=== PATIENT | male | born 1945 | race Caucasian/White ===

== ENCOUNTER 2024-02-11 10:55 | Outpatient (OUT) | payer MEDICARE, SELFPAY ==
[2024-02-11 12:36] LABS: Prostate Specific Antigen Dx 0.55 ng/mL (<=4.00)
== END 2024-02-11 10:56 | disposition home or self-care (01) ==
LOC: LAB 11:03
PROVIDERS: PCP Nurse Practitioner; Visit Provider Urology
DX: N40.1 Benign prostatic hyperplasia with lower urinary tract symptoms (principal)
CPT/HCPCS: 36415; 84153

== ENCOUNTER 2024-07-19 11:43 | Emergency (ER) | payer MEDICARE, SELFPAY ==
--- OUTSIDE RECORDS SUMMARY | 2024-07-19 11:49 | XMS_ITS | CCD ---
Author Organization [facility] Care Team Providers Care Fringe Weaver Name Role Phone JUN RODRIGUEZ Consulting Unavailable JUN RODRIGUEZ Admitting Unavailable JUN RODRIGUEZ Attending Unavailable KIKO ALEXANDER Primary Care Unavailable ADELE SANFORD Consulting Unavailable ROM RAY Consulting Unavailable KIKO ALEXANDER Primary Care Physician BISI, DR FELICITY Ortiz Attending Unavailable BISI, DR FELICITY Ortiz Consulting Unavailable BISI, DR FELICITY Ortiz Admitting Unavailable KIKO ALEXANDER Primary Care Unavailable Benjamin FARM OPERATIONS MANAGER-Kiko REYES Primary Care [facility] KIKO ALEXANDER Primary Care Unavailable Balwinder GARNER Attending Unavailable TRE ALEXANDERE Primary Care Unavailable Balwinder GARNER Attending Unavailable KIKO ALEXANDER Attending Unavailable KIKO ALEXANDER Referring Unavailable TER ALEXANDERE Ruid Primary Care Unavailable KIKO ALEXANDER Attending Unavailable KIKO ALEXANDER Referring Unavailable KIKO ALEXANDER Primary Care Unavailable KIKO ALEXANDER Attending Unavailable KIKO ALEXANDER Referring Unavailable TWYLA ALEXANDERERIE Rudi Primary Care Unavailable TWYLA ALEXANDERERIE Rudi Referring Unavailable TWYLA ALEXANDERERIE Rudi Primary Care Unavailable Allergies Allergy Classification Reported Allergen(s) Allergy Type Date of Onset Reaction(s) Facility (4 sources) Bee/Wasp/Ant venom; Translations: [Bee Stings] Allergy to substance Unknown Reaction [facility] (8 sources) Promethazine; Translations: [promethazine] Drug Allergy 7 Unknown Reaction [facility] (1 source) Levamisole Drug Allergy [facility] Repository Medications Current Medications Medication Drug Class(es) Dates Sig (Normalized) Sig (Original) acetaminophen 500 mg oral tablet (5 sources) Start: 01-03-2021 take 1 tablet by mouth every six hours acetaminophen 500 mg Tab 500 mg = 1 tab(s), Oral, q6hr, Refills(s) 0 Start Date: 01/03/21 Status: Ordered atorvastatin 10 mg oral tablet (6 sources) HMG-CoA Reductase Inhibitor Start: 11-07-2022 End: 10-07-2023 take 1 tablet by mouth in the morning atorvastatin (LIPITOR) 10 mg tablet Indications: 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) TAKE 1 TABLET BY MOUTH IN THE MORNING 90 tablet 2 10/07/2023 Active Start: 01-03-2021 take 1 tablet by anum th once daily atorvastatin 20 mg Tab 20 mg = 1 tab(s), Oral, Daily, Refills(s) 0 Start Date: 01/03/21 Status: Ordered Blood Glucose meter (1 source) Start: 02-11-2024 Blood Glucose meter Blood Glucose meter, Monitor blood glucose 4x a day Start Date: 02/11/24 Status: Ordered blood-glucose meter misc (2 sources) Start: 07-26-2021 blood-glucose meter misc Indications: New onset type 2 diabetes mellitus (CMS-HCC) , 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) , Type 2 diabetes mellitus treated with insulin (CMS-HCC) Monitor blood sugars 4 times daily, before meals and at bedtime 1 each 0 07/26/2021 Active Osteo Bi-Flex (3 sources) Start: 07-28-2019 Osteo Bi-Flex 1, Oral, Daily Start Date: 07/28/19 Status: Ordered Start: 07-28-2019 Osteo Bi-Flex Start Date: 07/28/19 Status: Ordered Cranberry preparation (2 sources) Non-Standardized Food Allergenic Extract, Non-Standardized Plant Allergenic Extract Start: 01-26-2022 cranberry Refill(s) 0 Start Date: 01/26/22 Status: Ordered cyclobenzaprine hydrochloride 10 mg oral tablet (3 sources) Muscle Relaxant Start: 02-11-2024 take 1 tablet by mouth twice daily as needed for muscle spasms cyclobenzaprine 10 mg Tab 10 mg = 1 tab(s), Oral, BID, PRN for spasm, # 30 tab(s), Refills(s) 0 Start Date: 02/11/24 Status: Ordered Start: 02-12-2023 take 1 tablet by anum th twice daily as needed for muscle spasms cyclobenzaprine (FLEXERIL) 10 mg tablet Indications: Chronic left-sided low back pain with left-sided sciatica Take 1 tablet (10 mg total) by mouth 2 (two) times a day as needed for muscle spasms. 60 tablet 1 02/12/2023 Active ferrous fumarate 325 mg oral tablet (3 sources) Start: 01-03-2021 take 1 tablet by mouth once daily ferrous fumarate 325 mg oral tablet 325 mg = 1 tab(s), Oral, Daily, Refills(s) 0 Start Date: 01/03/21 Status: Ordered FLUoxetine 40 mg oral capsule (6 sources) Serotonin Reuptake Inhibitor Start: 07-28-2019 End: 11-08-2023 take 1 capsule by mouth in the morning FLUoxetine (PROzac) 40 mg capsule Indications: Depression, major, in remission (CMS-HCC) Take 1 capsule by mouth in the morning 90 capsule 1 11/08/2023 Active folic acid 1 mg oral tablet (3 sources) Start: 02-11-2024 take 1 tablet by mouth once daily folic acid 1 mg Tab 1 mg = 1 tab(s), Oral, Daily, Refills(s) 0 Start Date: 02/11/24 Status: Ordered take 1 tablet [facility] folic acid (FOLVITE) 1 mg tablet Take 1 tablet (1 mg total) by mouth in the morning. 0 Active Garlic preparation (5 sources) Non-Standardized Food Allergenic Extract Start: 02-11-2024 take 1 tablet by mouth once daily garlic 1 tab, Oral, Daily, Refill(s) 0 Start Date: 02/11/24 Status: Ordered Start: 07-28-2019 garlic Start D ate: 07/28/19 Status: Ordered garlic 100 mg ta blet Take by mouth. 0 Active glucosamine/chondr lane A sod (OSTEO BI-FLEX ORAL) (2 sources) glucosamine/sophia dr lane A sod (OSTEO BI-FLEX ORAL) Take by mouth. 0 Active Lantus (2 sources) Insulin Analog Start: 2021 Lantus SubCutaneous, Daily, Refills(s) 0 Start Date: 01/26/22 Status: Ordered iron 65 mg 2 daily (2 sources) Start: 2018 iron 65 mg 2 daily iron 65 mg 2 daily Start Date: 07/28/19 Status: Ordered lisinopril 5 mg oral tablet (6 sources) Angiotensin Converting Enzyme Inhibitor Start: 2022 End: 2023 take 1 tablet by mouth in the morning lisinopriL (PRINIVIL,ZESTRIL) 5 mg tablet Indications: DM type 2 with diabetic mixed hyperlipidemia ([facility]-HCC) Take 1 tablet (5 mg total) by mouth in the morning. 90 tablet 1 11/08/2023 Active Start: 01-26-2022 take 1 tablet by anum th once daily lisinopril 2.5 mg Tab 2.5 mg = 1 tab(s), Oral, Daily, Refills(s) 0 Start Date: 01/26/22 Status: Ordered loratadine 10 mg oral tablet (3 sources) Start: 01-03-2021 take 1 tablet by mouth once daily loratadine 10 mg Tab 10 mg = 1 tab(s), Oral, Daily, Refills(s) 0 Start Date: 01/03/21 Status: Ordered 24 hr metoprolol succinate 25 mg extended release oral tablet (6 sources) beta-Adrenergic Rachele Start: 02-11-2024 take 1 tablet by mouth once daily Toprol XL 25 mg Tab-ER 25 mg = 1 tab(s), Oral, Daily, Refills(s) 0 Start Date: 02/11/24 Status: Ordered Start: 05-30-2023 End: 11-08-2023 take 1 tablet by mouth every twenty-four hours in the morning metoprolol succinate XL (TOPROL XL) 25 mg 24 hr tablet Indications: 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 90 tablet 1 11/08/2023 Active Start: 01-03-2021 take 1 mg by mouth once daily Metoprolol succinate 50 mg ER Tablet mg, Oral, Daily, Refills(s) 0 Start Date: 01/03/21 Status: Ordered Start: 01-03-2021 take 1 mg by mouth once daily Metoprolol succinate 50 mg ER Tablet mg, Oral, Daily, Refills(s) 0 Start Date: 01/03/21 Status: Ordered Multi Vitamin+ (1 source) Start: 02-11-2024 take 1 tablet by mouth once daily Multi Vitamin+ 1tab, Oral, Daily, Refill(s) 0 Start Date: 02/11/24 Status: Ordered multivitamin capsule (2 sources) take 1 capsule by mouth in the morning multivitamin capsule Take 1 capsule by mouth in the morning. 0 Active silodosin 8 mg oral capsule (5 sources) alpha-Adrenergi c Rachele Start: 02-12-2017 take 1 capsule by mouth once daily Rapaflo 8 mg oral capsule 8 mg = 1 cap(s), Oral, Daily, # 90 cap(s), Refills(s) 3, Pharmacy: [id number], 184, cm, 02/05/23 9:56:00 EDT, Height/Length Dosing, 95.2, kg, 02/05/23 9:56:00 EDT, Weight Dosing Start Date: 10/30/23 Status: Ordered Vitamin D3 (2 sources) Start: 07-28-2019 Vitamin D3 Sta rt Date: 07/28/19 Status: Ordered Problems Active Problems Problem Classification Problem Date Documented Date Episodic/Chronic Cancer of kidney and renal pelvis (6 sources) History of malignant neoplasm of kidney; Translations: [Personal history of other malignant neoplasm of kidney] Onset: 01-26-2022 Episodic Chronic kidney disease (1 source) Chronic kidney disease; Translations: [Chronic kidney disease, stage 3 unspecified] Onset: 11-24-2020 Conditions associated with dizziness or vertigo (1 source) Dizziness Onset: 03-25-2024 Episodic Deficiency and other anemia (2 sources) Anemia of chronic disease; Translations: [Anemia in other chronic diseases classified elsewhere] Onset: 11-26-2017 06-04-2019 Chronic Deficiency and other anemia (2 sources) Anemia co-occurrent and due to chronic kidney disease stage 3; Translations: [Anemia due to stage 3 chronic kidney disease (CMS-HCC)] Onset: 05-24-2020 05-24-2020 Chronic Diabetes mellitus with complications (6 sources) Mixed hyperlipidemia due to type 2 diabetes mellitus; Translations: [Type 2 diabetes mellitus with other specified complication] Onset: 12-14-2021 10-07-2023 Chronic Diabetes mellitus without complication (4 sources) Diabetes mellitus Onset: 04-09-2024 01-26-2022 Chronic Disorders of lipid metabolism (4 sources) Mixed hyperlipidemia; Translations: [Mixed hyperlipidemia] Onset: 02-11-2019 02-11-2019 Chronic Essential hypertension (1 source) Hypertensive disorder Onset: 04-09-2024 Chronic Genitourinary symptoms and ill-defined conditions (3 sources) Post-micturition incontinence 07-28-2019 Chronic Genitourinary symptoms and ill-defined conditions (9 sources) Nocturia; Translations: [Poor stream of urine] 07-28-2019 Episodic Hyperplasia of prostate (12 sources) Benign prostatic hypertrophy with outflow obstruction; Translations: [Benign prostatic hyperplasia with lower urinary tract symptoms] Onset: 01-26-2022 Chronic Hypertension with complications and secondary hypertension (6 sources) Hypertensive heart AND chronic kidney disease stage 3; Translations: [Hypertensive heart and chronic kidney disease without heart failure, with stage 1 through stage 4 chronic kidney disease, or unspecified chronic kidney disease] Onset: 11-28-2017 11-24-2020 Chronic Immunizations and screening for infectious disease (4 sources) Requires diphtheria, tetanus and pertussis vaccination; Translations: [Encounter for immunization] Onset: 07-10-2018 Resolved: 11-24-2020 11-24-2020 Episodic Mood disorders (9 sources) Depressive disorder; Translations: [Depression] Onset: 11-07-2022 05-18-2019 Chronic Nutritional deficiencies (2 sources) Vitamin D deficiency; Translations: [Vitamin D deficiency, unspecified] 12-11-2022 Chronic Osteoarthritis (2 sources) Osteoarthritis; Translations: [Unspecified osteoarthritis, unspecified site] 03-19-2017 Chronic Other connective tissue disease (2 sources) Triggering of digit; Translations: [Trigger finger, unspecified finger] 12-11-2022 Episodic Other diseases of kidney and ureters (1 source) Urinary tract obstruction; Translations: [Other obstructive and reflux uropathy] Onset: 02-05-2023 Episodic Other inflammatory condition of skin (2 sources) Seborrheic dermatitis; Translations: [Seborrheic dermatitis, unspecified] 12-11-2022 Episodic Other upper respiratory disease (2 sources) Seasonal allergic rhinitis; Translations: [Other seasonal allergic rhinitis] 11-28-2017 Chronic Otitis media and related conditions (1 source) Otitis media in diseases classified elsewhere, right ear; Translations: [Otitis media in diseases classified elsewhere, right ear] Onset: 03-25-2024 Episodic Residual codes; unclassified (2 sources) Sleep apnea; Translations: [Sleep apnea, unspecified] 03-19-2017 Chronic Residual codes; unclassified (3 sources) Family history of cancer; Translations: [Family history of malignant neoplasm of prostate] Onset: 01-26-2022 Episodic Residual codes; unclassified (3 sources) Family history of prostate cancer 05-18-2019 Episodic Screening and history of mental health and substance abuse codes (3 sources) Ex-smoker 05-18-2019 Episodic Unclassified (1 source) Annual Exam Onset: 11-08-2023 Past or Other Problems Problem Classification Problem Date Documented Da te Episodic/Chronic Malignant neoplasm without specification of site (2 sources) Malignant neoplastic disease; Translations: [Malignant (primary) neoplasm, unspecified] Resolved: 05-24-2021 12-11-2022 Chronic Mood disorders (2 sources) Mood disorders Onset: 05-30-2023 Resolved: 11-08-2023 05-30-2023 Nonspecific chest pain (2 sources) Left sided chest pain; Translations: [Other chest pain] Onset: 04-13-2020 04-13-2020 Episodic Open wounds of extremities (2 sources) Open wound of right lower leg; Translations: [Unspecified open wound, right lower leg, initial encounter] Onset: 06-22-2019 Resolved: 11-24-2020 11-24-2020 Episodic Other aftercare (2 sources) Removal of sutures done; Translations: [Encounter for removal of sutures] Onset: 06-22-2019 Resolved: 11-24-2020 11-24-2020 Episodic Other fractures (2 sources) Fracture of sixth thoracic vertebra; Translations: [Unspecified fracture of T5-T6 vertebra, initial encounter for closed fracture] Onset: 05-24-2021 05-24-2021 Episodic Other fractures (2 sources) Closed fracture of clavicle; Translations: [Fracture of unspecified part of right clavicle, subsequent encounter for fracture with routine healing] Onset: 05-24-2021 05-24-2021 Episodic Other fractures (2 sources) Closed fracture of multiple right ribs; Translations: [Multiple fractures of ribs, right side, initial encounter for closed fracture] Onset: 05-24-2021 05-24-2021 Episodic Spondylosis; intervertebral disc disorders; other back problems (2 sources) Chronic low back pain; Translations: [Lumbago with sciatica, left side] Onset: 11-26-2017 11-17-2019 Episodic Unclassified (2 sources) Onset: 05-31-2023 Resolved: 11-08-2023 05-31-2023 Results Test Name Value Interpretation Reference Range Facility CBC AND AUTO DIFFon 04-09-20 24 ABSOLUTE BASOPHIL 0.0 X10E9/L Normal 0.0-0.2 [facility] Comment on above: Performed By: #### C BCA, CMP, 17929-3, 3016-3, 51700-9, HA1C #### [facility] ([id number]) [address], [address] [place] [address] ABSOLUTE NEUTROPHIL 4.4 X10E9/L Normal 1.5-6.6 [facility] Comment on above: Performed By: #### C BCA, CMP, 17562-0, 3016-3, 68205-0, HA1C #### [facility] ([id number]) [address], [address] [place] [address] Basophils/100 WBC (Bld) 0.4 % Normal [facility] Comment on above: Performed By: #### C BCA, CMP, 70891-6, 3016-3, 54420-3, HA1C #### [facility] ([id number]) [address], [address] [place] [address] Eosinophils (Bld) [#/Vol] 0.2 10*3/uL Normal 0.0-0.4 [facility] Comment on above: Performed By: #### C BCA, CMP, 59436-6, 3016-3, 89270-5, HA1C #### [facility] ([id number]) [address], [address] [place] [address] Eosinophils/100 WBC (Bld) 2.9 % Normal [facility] Comment on above: Performed By: #### C BCA, CMP, 63909-8, 3016-3, 50635-6, HA1C #### [facility] ([id number]) [address], [address] [place] [address] Erythrocyte distribution width (RBC) [Ratio] 13.9 % Normal 11.5-15.0 [facility] Comment on above: Performed By: #### C BCA, CMP, 41334-9, 3016-3, 51886-9, HA1C #### [facility] ([id number]) [address], [facility] [address] [place] [address] Hematocrit (Bld) [Volume fraction] 40.0 % Normal 39-49 [facility] Comment on above: Performed By: #### C BCA, CMP, 56657-6, 3016-3, 45084-8, HA1C #### [facility] ([id number]) [address], [address] [place] [address] Hemoglobin (Bld) [Mass/Vol] 14.1 g/dL Normal 13.0-17.0 [facility] Comment on above: Performed By: #### C BCA, CMP, 74727-6, 3016-3, 73671-4, HA1C #### [facility] ([id number]) [address], [facility] [address] [place] [address] Lymphocytes (Bld) [#/Vol] 2.0 10*3/uL Normal 1.0-3.5 [facility] Comment on above: Performed By: #### C BCA, CMP, 77192-4, 3016-3, 06130-7, HA1C #### [facility] ([id number]) [address], [address] [place] [address] Lymphocytes/100 WBC (Bld) 27.6 % Normal [facility] Comment on above: Performed By: #### C BCA, CMP, 54863-2, 3016-3, 42766-6, HA1C #### [facility] ([id number]) [address], [address] [place] [address] MCH (RBC) [Entitic mass] 33.0 pg Normal 27-34 [facility] Comment on above: Performed By: #### C BCA, CMP, 27713-4, 3016-3, 45098-4, HA1C #### [facility] ([id number]) [address], [address] [place] [address] MCHC (RBC) [Mass/Vol] 35.2 g/dL Normal 32-36 [facility] Comment on above: Performed By: #### C BCA, CMP, 48075-8, 3016-3, 31871-7, HA1C #### [facility] ([id number]) [address], [facility] [address] [place] [address] MCV (RBC) [Entitic vol] 94 fL Normal 80-100 [facility] Comment on above: Performed By: #### C BCA, CMP, 49955-0, 3016-3, 68301-8, HA1C #### [facility] ([id number]) [address] [address] [place] [address] Monocytes (Bld) [#/Vol] 0.6 10*3/uL Normal 0-0.9 [facility] Comment on above: Performed By: #### C BCA, CMP, 35945-6, 3016-3, 01416-5, HA1C #### [facility] ([id number]) [address] [address] [place] [address] Monocytes/100 WBC (Bld) 7.9 % Normal [facility] Comment on above: Performed By: #### C BCA, CMP, 05014-7, 3016-3, 81033-0, HA1C #### [facility] ([id number]) [address], [address] [place] [address] Neutrophils/100 WBC (Bld) 61.2 % Normal [facility] Comment on above: Performed By: #### C BCA, CMP, 78325-6, 3016-3, 27712-5, HA1C #### [facility] ([id number]) [address], [facility] [address] [place] [address] Platelet mean volume (Bld) [Entitic vol] 7.4 fL Normal 7-12 [facility] Comment on above: Performed By: #### C BCA, CMP, 85209-4, 3016-3, 04242-2, HA1C #### [facility] ([id number]) [address], [facility] [address] [place] [address] Platelets (Bld) [#/Vol] 284 10*3/uL Normal 150-450 [facility] Comment on above: Performed By: #### C BCA, CMP, 38003-3, 3016-3, 07029-0, HA1C #### [facility] ([id number]) [address], [facility] [address] [place] [address] RBC COUNT 4.25 X10E12/L Normal 4.10-5.70 [facility] Comment on above: Performed By: #### C BCA, CMP, 98200-3, 3016-3, 24431-5, HA1C #### [facility] ([id number]) [address], [address] [place] [address] WBC (Bld) [#/Vol] 7.1 10*3/uL Normal 4.0-11.0 [facility] Comment on above: Performed By: #### C BCA, CMP, 77419-1, 3016-3, 16128-0, HA1C #### [facility] ([id number]) [address], [address] [place] [address] COMPREHENSIVE METABOLIC PANE Gamaliel 04-09-2024 Albumin [Mass/Vol] 4.4 g/dL Normal 3.2-5.3 [facility] Comment on above: Performed By: #### C BCA, CMP, 22725-2, 3016-3, 42864-7, HA1C #### [facility] ([id number]) [address], [address] [place] [address] ALP [Catalytic activity/Vol] 82 U/L Normal 39-130 [facility] Comment on above: Performed By: #### C BCA, CMP, 59722-9, 3016-3, 39683-5, HA1C #### [facility] ([id number]) [address], [address] [place] [address] ALT [Catalytic activity/Vol] 27 U/L Normal 0-40 [facility] Comment on above: Performed By: #### C BCA, CMP, 17334-7, 3016-3, 51432-2, HA1C #### [facility] ([id number]) [address], [address] [place] [address] Anion gap [Moles/Vol] 9 mmol/L Normal 5-15 [facility] Comment on above: Performed By: #### C BCA, CMP, 81745-4, 3016-3, 39120-9, HA1C #### [facility] ([id number]) [address], [address] [place] [address] AST [Catalytic activity/Vol] 22 U/L Normal 0-41 [facility] Comment on above: Performed By: #### C BCA, CMP, 50437-6, 3016-3, 16911-7, HA1C #### [facility] ([id number]) [address], [address] [place] [address] Bilirubin [Mass/Vol] 0.6 mg/dL Normal 0.3-1.2 [facility] Comment on above: Performed By: #### C BCA, CMP, 37036-4, 3016-3, 26954-8, HA1C #### [facility] ([id number]) [address], [address] [place] [address] Calcium [Mass/Vol] 9.4 mg/dL Normal 8.5-10.5 [facility] Comment on above: Performed By: #### C BCA, CMP, 36459-5, 3016-3, 76492-4, HA1C #### [facility] ([id number]) [address], [address] [place] [address] Chloride [Moles/Vol] 106 mmol/L Normal 98-109 [facility] Comment on above: Performed By: #### C BCA, CMP, 55464-5, 3016-3, 94180-1, HA1C #### [facility] ([id number]) [address], [address] [place] [address] CO2 [Moles/Vol] 27 mmol/L Normal 22-32 [facility] Comment on above: Performed By: #### C BCA, CMP, 92627-4, 3016-3, 85916-6, HA1C #### [facility] ([id number]) [address] [address] [place] [address] Creatinine [Mass/Vol] 1.41 mg/dL High 0.60-1.30 [facility] Comment on above: Result Comment: METH OD TRACEABLE TO IDMS STANDARD Performed By: #### C BCA, CMP, 36137-9, 3016-3, 17415-0, HA1C #### [facility] ([id number]) [address] [address] [place] [address] GFR/1.73 sq M.predicted among non-blacks MDRD (S/P/Bld) [Vol rate/Area] 51 mL/min/{1.73_m2} Low >59 [facility] Comment on above: Result Comment: Reported eGFR is based on the CKD-EPI 2020 equation that does not use a race coefficient. Performed By: #### C BCA, CMP, 09218-6, 3016-3, 66122-6, HA1C #### [facility] ([id number]) [address], [address] [place] [address] Glucose [Mass/Vol] 100 mg/dL High 65-99 [facility] Comment on above: Performed By: #### C BCA, CMP, 14119-2, 3016-3, 37702-2, HA1C #### [facility] ([id number]) [address], [address] [place] [address] Potassium [Moles/Vol] 4.0 mmol/L Normal 3.5-5.0 [facility] Comment on above: Performed By: #### C BCA, CMP, 27957-6, 3016-3, 02348-6, HA1C #### [facility] ([id number]) [address], [address] [place] [address] Protein [Mass/Vol] 7.3 g/dL Normal 6.0-8.0 [facility] Comment on above: Performed By: #### C BCA, CMP, 27735-8, 3016-3, 39602-4, HA1C #### [facility] ([id number]) [address], [address] [place] [address] Sodium [Moles/Vol] 142 mmol/L Normal 134-146 [facility] Comment on above: Performed By: #### C BCA, CMP, 93386-3, 3016-3, 36788-7, HA1C #### [facility] ([id number]) [address], [address] [place] [address] Urea nitrogen [Mass/Vol] 20 mg/dL Normal 5-27 [facility] Comment on above: Performed By: #### C BCA, CMP, 02459-6, 3016-3, 86027-1, HA1C #### [facility] ([id number]) [address], [address] [address] HCV Ab IA Qlon 04-09-2024 ANTI HCV W/PCR REFLX Non-Reactive Normal NRCT Pr [facility] Comment on above: Result Comment: If recent infection suspected, recommend repeat testing (>2 months). Totjyg-su-hrywhz ratio is <0.80. Performed By: #### C BCA, CMP, 38655-6, 3016-3, 87781-9, HA1C #### [facility] ([id number]) [address] [address] HGB A1C (GLYCO-HGB)on 2023 Glucose [Mass/Vol] 126 mg/dL Normal [facility] Comment on above: Performed By: #### C BCA, CMP, 29965-6, 3016-3, 23085-1, HA1C #### [facility] ([id number]) [address] [address] HbA1c (Bld) [Mass fraction] 6.0 % High 4.4-5.6 [facility] Comment on above: Result Comment: NOTE ADA Guidelines Result HgbA1c Normal : less than 5.7 % Prediabetes : 5.7 % to 6.4 % Diabetes : > 6.4 % Use with caution in patients with abnormal hemoglobin variants as the half-life of red blood cells and in vivo glycation rates are affected. Performed By: #### C BCA, CMP, 41570-5, 3016-3, 33036-8, HA1C #### [facility] ([id number]) [address] [address] Lipid 1996 panelon 4 Cholesterol [Mass/Vol] 124 mg/dL Low 150-200 [facility] Comment on above: Performed By: #### C BCA, CMP, 87368-3, 3016-3, 44198-3, HA1C #### [facility] ([id number]) [address], [address] [place] [address] Cholesterol in HDL [Mass/Vol] 33 mg/dL Low >39 [facility] Comment on above: Result Comment: HDL <40 mg/dL - High Risk HDL > or = 40mg/dL- Desirable HDL >60 mg/dL - Negative Risk Performed By: #### C BCA, CMP, 94570-6, 3016-3, 26921-6, HA1C #### [facility] ([id number]) [address], [address] [place] [address] Cholesterol in LDL [Mass/Vol] 72 mg/dL Normal <130 [facility] Comment on above: Result Comment: LDL <100 mg/dL - Desirable LDL >160 mg/dL - High Risk Performed By: #### C BCA, CMP, 63539-3, 3016-3, 63617-0, HA1C #### [facility] ([id number]) [address], [address] [place] [address] Cholesterol in VLDL [Mass/Vol] 19 mg/dL Normal 0-30 [facility] Comment on above: Performed By: #### C BCA, CMP, 32657-8, 3016-3, 66987-8, HA1C #### [facility] ([id number]) [address], [address] [place] [address] CHOLESTEROL:HDL 3.8 Normal 1.0-5.0 [facility] Comment on above: Performed By: #### C BCA, CMP, 17370-1, 3016-3, 28216-8, HA1C #### [facility] ([id number]) [address], [address] [place] [address] Triglyceride [Mass/Vol] 93 mg/dL Normal 27-150 [facility] Comment on above: Performed By: #### C BCA, CMP, 72780-4, 3016-3, 31138-4, HA1C #### [facility] ([id number]) [address] [facility] [address] [place] [address] MICROALBUMIN - ALBUMIN:CREAT ININE URINE RATIOon 04-09-2024 ALB/CREAT RATIO 55.6 mg/g creat High 0.0-30.0 [facility] Comment on above: Performed By: #### M ALBU #### [facility] ([id number]) [address] [facility] [address] [place] [address] Albumin DL <= 20 mg/L (U) [Mass/Vol] 5.7 mg/dL High 0.0-1.9 [facility] Comment on above: Performed By: #### M ALBU #### [facility] ([id number]) [address] [facility] [address] [place] [address] URINE CREAT 102.49 mg/dL Normal [facility] Comment on above: Performed By: #### M ALBU #### [facility] ([id number]) [address] [facility] [address] [place] [address] TSH Qnon 04-09-2024 TSH 3.20 uIU/mL Normal 0.49-4.67 [facility] Comment on above: Performed By: #### C BCA, CMP, 10938-0, 3016-3, 39756-5, HA1C #### [facility] ([id number]) [address] [facility] [place] [address] Screenson 02-14-2024 Screens [id number] [id number] Normal [facility] Ambulatory Visit Summaryon 0 02-11-2024 Ambulatory Visit Summary LEONARDO CARMONA :1945 Visit Date:02/11/2024 Ambulatory Visit Instructions Your Diagnosis BPH with urinary obstruction Family hx of prostate cancer Hx of renal cell carcinoma Your Care Team Attending Physician - Balwinder GARNER MD Primary Care Physician - KIKO ALEXANDER CNP This Is Your Medications List silodosin (Rapaflo 8 mg oral capsule) Contact prescribing physician if questions or concerns Misc Prescription (Blood Glucose meter) acetaminophen (acetaminophen 500 mg Tab) atorvastatin (atorvastatin 20 mg Tab) chondroitin-glucosamine (Osteo Bi-Flex) cyclobenzaprine (cyclobenzaprine 10 mg Tab) ferrous fumarate (ferrous fumarate 325 mg oral tablet) fluoxetine (FLUoxetine 40 mg Cap) folic acid (folic acid 1 mg Tab) garlic lisinopril (lisinopril 2.5 mg Tab) loratadine (loratadine 10 mg Tab) metoprolol (Toprol XL 25 mg Tab-ER) multivitamin (Multi Vitamin+) Procedures Performed Cystoscopy (07/13/2010), Urodynamics (07/13/2010), Nephrectomy. Discharge Vitals Temperature (Temporal Artery) 37 ?C Heart Rate (Peripheral) 57 Respiratory Rate 16 Blood Pressure 125/72 Height 184 cm Height 72 in Weight 95 kg Weight 209 lb BMI 28.06 What to do next Scheduled Follow-Up Appointments Sunday. 2024 9:45 AM EDT With: Balwinder GARNER MD Where: [facility] Lab Reportson 02-11-2024 Lab Reports [id number] [id number] F [facility] Patient Educationon 02-11-20 24 Patient Education Urology Benign Prostatic Hyperplasia Benign prostatic hyperplasia (BPH) is an enlarged prostate gland that is caused by the normal aging process. The prostate may get bigger as a man gets older. The condition is not caused by cancer. The prostate is a walnut-sized gland that is involved in the production of semen. It is located in front of the rectum and below the bladder. The bladder stores urine. The urethra carries stored urine out of the body. An enlarged prostate can press on the urethra. This can make it harder to pass urine. The buildup of urine in the bladder can cause infection. Back pressure and infection may progress to bladder damage and kidney (renal) failure. What are the causes? This condition is part of the normal aging process. However, not all men develop problems from this condition. If the prostate enlarges away from the urethra, urine flow will not be blocked. If it enlarges toward the urethra and compresses it, there will be problems passing urine. What increases the risk? This condition is more likely to develop in men older than 50 years. What are the signs or symptoms? Symptoms of this condition include: ? Getting up often during the night to urinate. ? Needing to urinate frequently during the day. ? Difficulty starting urine flow. ? Decrease in size and strength of your urine stream. ? Leaking (dribbling) after urinating. ? Inability to pass urine. This needs immediate treatment. ? Inability to completely empty your bladder. ? Pain when you pass urine. This is more common if there is also an infection. ? Urinary tract infection (UTI). How is this diagnosed? This condition is diagnosed based on your medical history, a physical exam, and your symptoms. Tests will also be done, such as: ? A post-void bladder scan. This measures any amount of urine that may remain in your bladder after you finish urinating. ? A digital rectal exam. In a rectal exam, your health care provider checks your prostate by putting a lubricated, gloved finger into your rectum to feel the back of your prostate gland. This exam detects the size of your gland and any abnormal lumps or growths. ? An exam of your urine (urinalysis). ? A prostate specific antigen (PSA) screening. This is a blood test used to screen for prostate cancer. ? An ultrasound. This test uses sound waves to electronically produce a picture of your prostate gland. Your health care provider may refer you to a specialist in kidney and prostate diseases (urologist). How is this treated? Once symptoms begin, your health care provider will monitor your condition (active surveillance or watchful waiting). Treatment for this condition will depend on the severity of your condition. Treatment may include: ? Observation and yearly exams. This may be the only treatment needed if your condition and symptoms are mild. ? Medicines to relieve your symptoms, including: ? Medicines to shrink the prostate. ? Medicines to relax the muscle of the prostate. ? Surgery in severe cases. Surgery may include: ? Prostatectomy. In this procedure, the prostate tissue is removed completely through an open incision or with a laparoscope or robotics. ? Transurethral resection of the prostate (TURP). In this procedure, a tool is inserted through the opening at the tip of the penis (urethra). It is used to cut away tissue of the inner core of the prostate. The pieces are removed through the same opening of the penis. This removes the blockage. ? Transurethral incision (TUIP). In this procedure, small cuts are made in the prostate. This lessens the prostate's pressure on the urethra. ? Transurethral microwave thermotherapy (TUMT). This procedure uses microwaves to create heat. The heat destroys and removes a small amount of prostate tissue. ? Transurethral needle ablation (TUNA). This procedure uses radio frequencies to destroy and remove a small amount of prostate tissue. ? Interstitial laser coagulation (ILC). This procedure uses a laser to destroy and remove a small amount of prostate tissue. ? Transurethral electrovaporization (TUVP). This procedure uses electrodes to destroy and remove a small amount of prostate tissue. ? Prostatic urethral lift. This procedure inserts an implant to push the lobes of the prostate away from the urethra. Follow these instructions at home: ? Take olqo-vbb-wjtoeqy and prescription medicines only as told by your health care provider. ? Monitor your symptoms for any changes. Contact your health care provider with any changes. ? Avoid drinking large amounts of liquid before going to bed or out in public. ? Avoid or reduce how much caffeine or alcohol you drink. ? Give yourself time when you urinate. ? Keep all follow-up visits. This is important. Contact a health care provider if: ? You have unexplained back pain. ? Your symptoms do not get better with treatment. ? You develop side effects from the medicine (more content not included)... Normal [facility] Urology Office/Clinic Noteon 02-11-2024 Urology Office/Clinic Note Chief Complaint Pt is here for 1 yr w/ PSA HPI Staff RWR pt. 1 year follow up w/PSA Previous DX: enlarged prostate w/urinary obstruction, family HX of prostate cancer, HX of renal cell carcinoma, post void dribbling, nocturia, urinary urgency, weak urinary stream. Rapaflo 8mg qd. S/P Rt Nephrectomy 2000. PSA 06/02/19 - 0.490 12/27/20 - 0.40 01/16/22 - 0.45 01/29/23 - 0.57 Dysuria: denies Incomplete bladder emptying: denies Hematuria: denies Frequency: yes Urgency: mild Nocturia: 1x a night Stream: steady weak stream Leaking: mild Post void dripping: mild Wearing pads/ Depends: denies Urge incontinence: 1-2 this year Stress incontinence: denies Incontinence without Sensory Awareness: denies Abdominal pain: denies Flank pain: denies Sexual complaints: _ History of Present Illness Tests reviewed: reviewed UA. I have reviewed the previous health record information and history for this patient from Dr. Castaneda. I have reviewed and verified the staff HPI to be accurate for this encounter. There have been no associated fever, chills, flank pain, or blood in the urine. Denies any urinary infections since last encounter. Review of Systems PHQ Score Initial Depression Screen Score: 0 SCORE ROS - Provider Constitutional: denies weight loss, denies hot flashes. Eyes: denies eye problems. Gastrointestinal: denies nausea, denies vomiting. Cardiovascular: denies chest pain or angina. Integumentary: no dryness Musculoskeletal: denies musculoskeletal symptoms. ENMT: denies otolaryngeal symptoms. Respiratory: no shortness of breath. Heme/Lymph: denies easy bleeding tendency, denies easy bruising tendency. Psychiatric: no confusion, no anxiety. Genitourinary: See HPI. Physical Exam Vitals & Measurements T: 37 ?C(Temporal Artery) HR: 57(Peripheral) RR: 16 BP: 125/72 HT: 72 in HT: 184 cm WT: 95 kg WT: 209 lb BMI: 28.06 General Appearance: alert, no distress, well nourished, well developed male. Assessment/Plan Portions of this record may have been created with voice recognition artificial intelligence software, specifically [employer], [employer] and or [employer]. Substitutions may have occurred due to the inherent limitations of voice recognition and artificial intelligence software. 1. BPH with urinary obstruction (N40.1: Benign prostatic hyperplasia with lower urinary tract symptoms) PSA: 12/27/20 - 0.40 01/16/22 - 0.45 01/29/23 - 0.57 Pt did not have a PSA drawn for today's appointment. Will order PSA to be done now. UA today neg. IPSS 14 (16) Taking Rapaflo 8 mg qd. Pt to call for refills. Nocturia 1x, mild urgency, steady weak stream. Discussed medication management vs surgical management. Pt pleased with current medication management, despite somewhat high IPSS score. -PSA now -Cont Rapaflo 8mg qd -Follow up in 1 year w/ PSA pending current level 2. Family hx of prostate cancer (Z80.42: Family history of malignant neoplasm of prostate) Father and brother. 3. Hx of renal cell carcinoma (Z85.528: Personal history of other malignant neoplasm of kidney) S/p R nephrectomy 2000. No current issues. The patient is here with his today. PSA level was not obtained as they state they did not receive a request. He has had no DONNELL for several years and if the PSA is normal he does not desire 1. He still scoring a 14 despite being on the alpha-rachele but is fairly happy with his urinary flow pattern. Discussed other options including prostate resection versus UroLift versus Rezum procedure. They will call for refills. No need for doses changes at this point. They agree with the plan call for the upcoming PSA level result Follow-up With When Contact Information PATSY TURNER, Balwinder Gastelum, URL [address] [place] [address] [place] [phone]- Additional Instructions: 1 year w/ PSA Patient Education Benign Prostatic Hyperplasia Daina Boone, personally scribed for Dr. Garner on 02/11/2024 10:14:56. . Documentation recorded by the scribDaina telles, accurately reflects the services(s) I performed and decisions made by me. Authenticated by Dr. Garner on 02/11/2024 10:18:48. Problem List/Past Medical History Ongoing BPH with urinary obstruction Depression Diabetes Family hx of prostate cancer Former smoker Hx of renal cell carcinoma Nocturia Post-void dribbling Urinary urgency Weak urine stream Historical No qualifying data Procedure/Surgical History Cystoscopy (07/13/2010), Urodynamics (07/13/2010), Nephrectomy. Medications acetaminophen 500 mg Tab, 500 mg= 1 tab(s), Oral, q6hr atorvastatin 20 mg Tab, 20 mg= 1 tab(s), Oral, Daily Blood Glucose meter, See Instructions cyclobenzaprine 10 mg Tab, 10 mg= 1 tab(s), Oral, BID, PRN ferrous fumarate 325 mg oral tablet, 325 mg= 1 tab(s), Oral, Daily FLUoxetine 40 mg Cap, 40 (more content not included)... Normal [facility] Comment on above: Result Comment: Elec tronically Signed By: Balwinder GARNER MD\.br\Date and Time Signed: 02/11/24 10:20 EDT\.br\Electronically Co-Signed By: Daina Barrett\.br\Date and Time Co-Signed: 02/11/24 10:15 EDT POCT Hemoglobin A1con 2023 HbA1c (Bld) [Mass fraction] 5.9 g/dL 4 - 7 g/dL [facility] Met[facility] Profon 04-16 (cont.) Normal [facility] Comment on above: Result Comment: Aver age GFR for 70 or more years old: 75 mL/min/1.73sq m Chronic Kidney Disease: <60 mL/min/1.73sq m Kidney failure: <15 mL/min/1.73sq m eGFR calculated using average adult body mass. Additional eGFR calculator available at: http://www.[employer]/multiple_crcl_2011.htm Performed By: #### T YS #### [employer] [address] [place], [place] [id number] [employer]: Hira Pastrana MD Anion gap [Moles/Vol] 10 mmol/L Normal 9-17 [facility] Comment on above: Performed By: #### T YS #### [facility] [address] [place], [place] [id number] [employer]: Hira Pastrana MD Calcium [Mass/Vol] 8.5 mg/dL Low 8.6-10.4 [facility] Comment on above: Performed By: #### T YS #### [facility] [place] [address] [employer]: Hira Pastrana MD Chloride [Moles/Vol] 102 mmol/L Normal 98-107 [facility] Comment on above: Performed By: #### T YS #### [facility] [employer] [address] [place] [address] [employer]: Hira Pastrana MD CO2 [Moles/Vol] 21 mmol/L Normal 20-31 [facility] Comment on above: Performed By: #### T YS #### [address] [address] [employer]: Hira Pastrana MD Creatinine [Mass/Vol] 0.96 mg/dL Normal 0.70-1.20 [facility] Comment on above: Performed By: #### T YS #### [address] [address] [employer]: Hira Pastrana MD GFR, Amer >60 Normal >60 [facility] Comment on above: Performed By: #### T YS #### [facility] [address] [place] [address] [employer]: Hira Pastrana MD GFR,non Amer >60 Normal >60 [facility] Comment on above: Performed By: #### T YS #### [facility] [address] [place] [address] [employer]: Hira Pastrana MD Glucose [Mass/Vol] 103 mg/dL High 70-99 [facility] Comment on above: Performed By: #### T YS #### [facility] [address] [place] [address] [employer]: Hira Pastrana MD Potassium [Moles/Vol] 3.8 mmol/L Normal 3.7-5.3 [facility] Comment on above: Performed By: #### T YS #### [place] [address] [place] [address] [employer]: Hira Pastrana MD Sodium [Moles/Vol] 133 mmol/L Low 135-144 [facility] Comment on above: Performed By: #### T YS #### [address] [address] [employer]: Hira Pastrana MD Urea nitrogen [Mass/Vol] 16 mg/dL Normal 8- [facility] Comment on above: Performed By: #### T YS #### [address] [address] [employer]: Hira Pastrana MD BUN/CRE Ratio NOT REPORTED Normal - [facility] Comment on above: Performed By: #### T YS #### [address] [address] [employer]: Hira Pastrana MD Staging: NOT REPORTED Normal [facility] Comment on above: Performed By: #### T YS #### [address] [address] [employer]: Hira Pastrana MD CBCon 04-16-2021 Erythrocyte distribution width (RBC) [Ratio] 12.7 % Normal 11.8-14.4 [facility] Comment on above: Performed By: #### T YS #### [facility] [address] [place] [address] [employer]: Hira Pastrana MD Hematocrit (Bld) [Volume fraction] 38.0 % Low 40.7-50.3 [facility] Comment on above: Performed By: #### T YS #### [address] [address] [employer]: Hira Pastrana MD Hemoglobin (Bld) [Mass/Vol] 12.4 g/dL Low 13.0-17.0 [facility] Comment on above: Performed By: #### T YS #### [address] [address] [employer]: Hira Pastrana MD MCH (RBC) [Entitic mass] 30.2 pg Normal 25.2-33.5 [facility] Comment on above: Performed By: #### T YS #### [address] [address] [employer]: Hira Pastrana MD MCHC (RBC) [Mass/Vol] 32.6 g/dL Normal 28.4-34.8 [facility] Comment on above: Performed By: #### T YS #### [address] [address] [employer]: Hira Psatrana MD MCV (RBC) [Entitic vol] 92.5 fL Normal 82.6-102.9 [facility] Comment on above: Performed By: #### T YS #### [address] [address] [employer]: Hira Pastrana MD NRBC Automated 0.0 per 100 WBC Normal 0.0 [facility] Comment on above: Performed By: #### T YS #### [address] [address] [employer]: Hira Pastrana MD Platelet mean volume (Bld) [Entitic vol] 9.2 fL Normal 8.1-13.5 [facility] Comment on above: Performed By: #### T YS #### [address] [address] [employer]: Hira Pastrana MD Platelets (Bld) [#/Vol] 231 10*3/uL Normal 138-453 [facility] Comment on above: Performed By: #### T YS #### [facility] [address] [place] [address] [employer]: Hira Pastrana MD RBC (Bld) [#/Vol] 4.11 10*6/uL Low 4.21-5.77 [facility] Comment on above: Performed By: #### T YS #### [facility] [address] [place] [address] [employer]: Hira Pastrana MD WBC (Bld) [#/Vol] 9.3 10*3/uL Normal 3.5-11.3 [facility] Comment on above: Performed By: #### T YS #### [facility] [address] [place] [address] [employer]: Hira Pastrana MD XR CHEST PORTABLEon 04-16-20 XR CHEST PORTABLE EXAMINATION: ONE XRAY VIEW OF THE CHEST 04/16/2021 6:20 pm COMPARISON: 04/16/2021 at 0515 hours HISTORY: ORDERING SYSTEM PROVIDED HISTORY: interval exam after CT removal TECHNOLOGIST PROVIDED HISTORY: interval exam after CT removal Reason for Exam: post chest tube removal upright port FINDINGS: Enlarged cardiomediastinal silhouette. Interval removal right-sided chest tube. No new or recurrent pneumothorax identified. Patchy right lung base opacities have evolved since prior exam. Suspected right-sided pleural thickening. Surgical identified left lung/left hemithorax. Chronic interstitial thickening. No pneumothorax IMPRESSION: Interval removal right-sided chest tube. Patchy opacity right lung base likely areas of atelectasis or scarring. No new or recurrent pneumothorax identified. Interpreted by: Gene Blank MD Signed by: Gene Blank MD 04/16/21 Final result Normal [facility] XR CHEST PORTABLE EXAMINATION: ONE XRAY VIEW OF THE CHEST 04/16/2021 6:07 am COMPARISON: 04/15/2021, 04/14/2021 HISTORY: ORDERING SYSTEM PROVIDED HISTORY: R pneumo with chest tube, rib fx TECHNOLOGIST PROVIDED HISTORY: R pneumo with chest tube, rib fx FINDINGS: Right chest tube in place. No pneumothorax identified. The cardiac and mediastinal contours appear unchanged. Streaky opacities in the lung bases are again noted. Right rib fractures again demonstrated. IMPRESSION: Right chest tube in place without pneumothorax identified. Similar appearance of basilar opacities, likely representing atelectasis. Interpreted by: Damien Ngo MD Signed by: Damien Ngo MD 04/16/21 Final result Normal [facility] Basic Metabolic Profon 04-15 (cont.) Normal [facility] Comment on above: Result Comment: Aver age GFR for 70 or more years old: 75 mL/min/1.73sq m Chronic Kidney Disease: <60 mL/min/1.73sq m Kidney failure: <15 mL/min/1.73sq m eGFR calculated using average adult body mass. Additional eGFR calculator available at: http://www.[employer]/multiple_crcl_2011.htm Performed By: #### C OVRB #### [address] [address] [employer]: Hira Pastrana MD Anion gap [Moles/Vol] 13 mmol/L Normal 9-17 [facility] Comment on above: Performed By: #### C OVRB #### [address] [address] [employer]: Hira Pastrana MD Calcium [Mass/Vol] 7.9 mg/dL Low 8.6-10.4 [facility] Comment on above: Performed By: #### C OVRB #### [facility] [address] [place] [address] [employer]: Hira Pastrana MD Chloride [Moles/Vol] 104 mmol/L Normal 98-107 [facility] Comment on above: Performed By: #### C OVRB #### [facility] [address] [place] [address] [employer]: Hira Pastrana MD CO2 [Moles/Vol] 21 mmol/L Normal 20-31 [facility] Comment on above: Performed By: #### C OVRB #### [address] [address] [employer]: Hira Pastrana MD Creatinine [Mass/Vol] 1.16 mg/dL Normal 0.70-1.20 [facility] Comment on above: Performed By: #### C OVRB #### [address] [address] [employer] Furniture: Hira Pastrana MD GFR, Amer >60 Normal >60 [facility] Comment on above: Performed By: #### C OVRB #### [address] [address] [employer]: Hira Pastrana MD GFR,non Amer >60 Normal >60 [facility] Comment on above: Performed By: #### C OVRB #### [address] [address] [employer]: Hira Pastrana MD Glucose [Mass/Vol] 105 mg/dL High 70-99 [facility] Comment on above: Performed By: #### C OVRB #### [address] [address] [employer]: Hira Pastrana MD Potassium [Moles/Vol] 3.8 mmol/L Normal 3.7-5.3 [facility] Comment on above: Performed By: #### C OVRB #### [address] [address] [employer]: Hira Pastrana MD Sodium [Moles/Vol] 138 mmol/L Normal 135-144 [facility] Comment on above: Performed By: #### C OVRB #### [address] [address] [employer]: Hira Pastrana MD Urea nitrogen [Mass/Vol] 16 mg/dL Normal 8-23 [facility] Comment on above: Performed By: #### C OVRB #### [address] [address] [employer]: Hira Pastrana MD BUN/CRE Ratio NOT REPORTED Normal - [facility] Comment on above: Performed By: #### C OVRB #### [address] [address] [employer]: Hira Pastraan MD Staging: NOT REPORTED Normal [facility] Comment on above: Performed By: #### C OVRB #### [address] [address] [employer]: Hira Pastrana MD CBC with Diffon 04-15-2021 Abs. Basophil 0.03 k/uL Normal 0.00-0.20 [facility] Comment on above: Performed By: #### C OVRB #### [address] [address] [employer]: Hira Pastrana MD Abs.Imm.Granulocyte 0.07 k/uL Normal 0.00-0.30 [facility] Comment on above: Performed By: #### C OVRB #### [address] [address] [employer]: Hira Pastrana MD Abs.Neutrophil (Seg) 8.50 k/uL High 1.50-8.10 [facility] Comment on above: Performed By: #### C OVRB #### [address] [address] [employer]: Hira Pastrana MD Basophils/100 WBC (Bld) 0 % Normal 0-2 [facility] Comment on above: Performed By: #### C OVRB #### [address] [address] [employer]: Hira Pastrana MD Eosinophils (Bld) [#/Vol] 0.15 10*3/uL Normal 0.00-0.44 [facility] Comment on above: Performed By: #### C OVRB #### [address] [address] [employer]: Hira Pastrana MD Eosinophils/100 WBC (Bld) 1 % Normal 1-4 [facility] Comment on above: Performed By: #### C OVRB #### [place] [address] [employer]: Hira Pastrana MD Erythrocyte distribution width (RBC) [Ratio] 13.0 % Normal 11.8-14.4 [facility] Comment on above: Performed By: #### C OVRB #### [place] [address] [employer]: Hira Pastrana MD Hematocrit (Bld) [Volume fraction] 37.0 % Low 40.7-50.3 [facility] Comment on above: Performed By: #### C OVRB #### [place] [address] [employer]: Hira Pastrana MD Hemoglobin (Bld) [Mass/Vol] 11.9 g/dL Low 13.0-17.0 [facility] Comment on above: Performed By: #### C OVRB #### [place] [address] [employer]: Hira Pastrana MD Immature granulocytes/100 WBC (Bld) 1 % High 0 [facility] Comment on above: Performed By: #### C OVRB #### [place] [address] [employer]: Hira Pastrana MD Lymphocytes (Bld) [#/Vol] 1.50 10*3/uL Normal 1.10-3.70 [facility] Comment on above: Performed By: #### C OVRB #### [address] [address] [employer] Furniture: Hira Pastrana MD Lymphocytes/100 WBC (Bld) 13 % Low 24-43 [facility] Comment on above: Performed By: #### C OVRB #### [address] [address] [employer] Furn[employer]: Hira Pastrana MD MCH (RBC) [Entitic mass] 30.0 pg Normal 25.2-33.5 [facility] Comment on above: Performed By: #### C OVRB #### [address] [address] [employer] Furn[employer]: Hira Pastrana MD MCHC (RBC) [Mass/Vol] 32.2 g/dL Normal 28.4-34.8 [facility] Comment on above: Performed By: #### C OVRB #### [address] [address] [employer] Furniture: Hira Pastrana MD MCV (RBC) [Entitic vol] 93.2 fL Normal 82.6-102.9 [facility] Comment on above: Performed By: #### C OVRB #### [address] [address] [employer] Furn[employer]: Hira Pastrana MD Monocytes (Bld) [#/Vol] 0.98 10*3/uL Normal 0.10-1.20 [facility] Comment on above: Performed By: #### C OVRB #### [address] [address] [employer] Furn[employer]: Hira Pastrana MD Monocytes/100 WBC (Bld) 9 % Normal 3-12 [facility] Comment on above: Performed By: #### C OVRB #### [address] [address] [employer]: Hira Pastrana MD Neutrophil (Seg) 76 % High 36-65 [facility] Comment on above: Performed By: #### C OVRB #### [address] [address] [employer]: Hira Pastrana MD NRBC Automated 0.0 per 100 WBC Normal 0.0 [facility] Comment on above: Performed By: #### C OVRB #### [address] [address] [employer]: Hira Pastrana MD Platelet mean volume (Bld) [Entitic vol] 9.2 fL Normal 8.1-13.5 [facility] Comment on above: Performed By: #### C OVRB #### [address] [address] [employer]: Hira Pastrana MD Platelets (Bld) [#/Vol] 256 10*3/uL Normal 138-453 [facility] Comment on above: Performed By: #### C OVRB #### [address] [address] [employer]: Hira Pastrana MD RBC (Bld) [#/Vol] 3.97 10*6/uL Low 4.21-5.77 [facility] Comment on above: Performed By: #### C OVRB #### [address] [address] [employer]: Hira Pastrana MD WBC (Bld) [#/Vol] 11.2 10*3/uL Normal 3.5-11.3 [facility] Comment on above: Performed By: #### C OVRB #### [address] [address] [employer]: Hira Pastrana MD Auto Diff Performed NOT REPORTED Normal [facility] Comment on above: Performed By: #### C OVRB #### [facility] [place] [address] [employer]: Hira Pastrana MD Platelet Estimate NOT REPORTED Normal [facility] Comment on above: Performed By: #### C OVRB #### [address] [place] [address] [employer]: Hira Pastrana MD RBC morphology finding Nom (Bld) NOT REPORTED Normal [facility] Comment on above: Performed By: #### C OVRB #### [facility] [address] [place] [address] [employer]: Hira Pastrana MD WBC Morphology NOT REPORTED Normal [facility] Comment on above: Performed By: #### C OVRB #### [address] [address] [employer]: Hira Pastrana MD Calcium, Ionicon 04-15-2021 Calcium [Moles/Vol] 1.04 mmol/L Low 1.13-1.33 [facility] Comment on above: Performed By: #### C OVRB #### [facility] [address] [place] [address] [employer]: Hira Pastrana MD Magnesiumon 04-15-2021 Magnesium [Mass/Vol] 2.0 mg/dL Normal 1.6-2.6 [facility] Comment on above: Performed By: #### C OVRB #### [address] [address] [employer]: Hira Pastrana MD Phosphorus, Inorg.on 021 Phosphorus, Inorg. 2.1 mg/dL Low 2.5-4.5 [facility] Comment on above: Performed By: #### C OVRB #### [facility] [address] [place] [address] [employer]: Hira Pastrana MD XR CHEST PORTABLEon 04-15-20 XR CHEST PORTABLE EXAMINATION: ONE XRAY VIEW OF THE CHEST 04/15/2021 9:34 am COMPARISON: April 14, 2021 HISTORY: ORDERING SYSTEM PROVIDED HISTORY: R pneumo with chest tube, rib fx TECHNOLOGIST PROVIDED HISTORY: R pneumo with chest tube, rib fx FINDINGS: Right-sided chest tube appears in satisfactory position. No appreciable pneumothorax. Enlarged cardiomediastinal silhouette appears unchanged. Bibasilar predominant airspace disease appears improved. No definite effusion. No subdiaphragmatic free air. IMPRESSION: No appreciable pneumothorax. Increased inspiratory volume and improving bibasilar predominant airspace disease. Interpreted by: Diego Senior MD Signed by: Diego Senior MD 04/15/21 Final result Normal [facility] XR THORACIC SPINE (2 VIEWS)o n 04-15-2021 XR THORACIC SPINE (2 VIEWS) EXAMINATION: 3 XRAY VIEWS OF THE THORACIC SPINE 04/15/2021 3:03 pm COMPARISON: CT of the chest from 04/13/2021 HISTORY: ORDERING SYSTEM PROVIDED HISTORY: T6 compression fracture TECHNOLOGIST PROVIDED HISTORY: Obtain STANDING AP/LAT T6 compression fracture Reason for Exam: upright Acuity: Unknown FINDINGS: Again noted is T6 compression deformity with height in the 18-19 mm range, similar by comparison and associated with mild kyphoscoliosis. Additional mild loss several midthoracic vertebral bodies also appear stable. Bony demineralization and multilevel degenerative findings again seen. Some sclerotic change visualized lumbar vertebral body possible. Right-sided chest tube. Right-sided rib fractures. Displaced comminuted right clavicular fracture. Basilar atelectasis and probable small pleural effusions again identified. Basilar infiltrate a concern. No pneumothorax. Clips RUQ. IMPRESSION: Stable T6 compression fracture with additional unchanged findings, as above. Interpreted by: Damien Lacy MD Signed by: Damien Lacy MD 04/15/21 Final result Normal [facility] Basic Metab w/rfx MGon 04-14 (cont.) Normal [facility] Comment on above: Result Comment: Aver age GFR for 70 or more years old: 75 mL/min/1.73sq m Chronic Kidney Disease: <60 mL/min/1.73sq m Kidney failure: <15 mL/min/1.73sq m eGFR calculated using average adult body mass. Additional eGFR calculator available at: http://www.[employer]/multiple_crcl_2012.htm Performed By: #### C OVRB #### [address] [address] [employer]: Hira Pastrana MD Anion gap [Moles/Vol] 11 mmol/L Normal 9-17 [facility] Comment on above: Performed By: #### C OVRB #### [address] [address] [employer]: Hira Pastrana MD Calcium [Mass/Vol] 8.6 mg/dL Normal 8.6-10.4 [facility] Comment on above: Performed By: #### C OVRB #### [address] [address] [employer]: Hira Pastrana MD Chloride [Moles/Vol] 104 mmol/L Normal 98-107 [facility] Comment on above: Performed By: #### C OVRB #### [address] [address] [employer]: Hira Pastrana MD CO2 [Moles/Vol] 22 mmol/L Normal 20-31 [facility] Comment on above: Performed By: #### C OVRB #### [address] [address] [employer]: Hira Pastrana MD Creatinine [Mass/Vol] 1.16 mg/dL Normal 0.70-1.20 [facility] Comment on above: Performed By: #### C OVRB #### [address] [address] [employer]: Hira Pastrana MD GFR, Amer >60 Normal >60 [facility] Comment on above: Performed By: #### C OVRB #### [address] [address] [employer]: Hira Pastrana MD GFR,non Amer >60 Normal >60 [facility] Comment on above: Performed By: #### C OVRB #### [address] [address] [employer]: Hira Pastrana MD Glucose [Mass/Vol] 190 mg/dL High 70-99 [facility] Comment on above: Performed By: #### C OVRB #### [address] [address] [employer]: Hira Pastrana MD Potassium [Moles/Vol] 4.3 mmol/L Normal 3.7-5.3 [facility] Comment on above: Performed By: #### C OVRB #### [address] [address] [employer]: Hira Pastrana MD Sodium [Moles/Vol] 137 mmol/L Normal 135-144 [facility] Comment on above: Performed By: #### C OVRB #### [address] [address] [employer]: Hira Pastrana MD Urea nitrogen [Mass/Vol] 16 mg/dL Normal 8-23 [facility] Comment on above: Performed By: #### C OVRB #### [address] [address] [employer]: Hira Pastrana MD BUN/CRE Ratio NOT REPORTED Normal 9-20 [facility] Comment on above: Performed By: #### C OVRB #### [address] [address] [employer]: Hira Pastrana MD Staging: NOT REPORTED Normal [facility] Comment on above: Performed By: #### C OVRB #### [address] [place] [address] [employer]: Hira Pastrana MD CBC with Diffon 04-14-2021 Abs. Basophil <0.03 Normal 0.00-0.20 [facility] Comment on above: Performed By: #### C OVRB #### [address] [address] [employer]: Hira Pastrana MD Abs. Eosinophil <0.03 Normal 0.00-0.44 [facility] Comment on above: Performed By: #### C OVRB #### [address] [address] [employer]: Hira Pastrana MD Abs.Imm.Granulocyte 0.06 k/uL Normal 0.00-0.30 [facility] Comment on above: Performed By: #### C OVRB #### [address] [address] [employer]: Hira Pastrana MD Abs.Neutrophil (Seg) 11.51 k/uL High 1.50-8.10 [facility] Comment on above: Performed By: #### C OVRB #### [address] [address] [employer]: Hira Pastrana MD Basophils/100 WBC (Bld) 0 % Normal 0-2 [facility] Comment on above: Performed By: #### C OVRB #### [address] [address] [employer]: Hira Pastrana MD Eosinophils/100 WBC (Bld) 0 % Low 1-4 [facility] Comment on above: Performed By: #### C OVRB #### [address] [address] [employer]: Hira Pastrana MD Erythrocyte distribution width (RBC) [Ratio] 13.0 % Normal 11.8-14.4 [facility] Comment on above: Performed By: #### C OVRB #### [address] [address] [employer]: Hira Pastrana MD Hematocrit (Bld) [Volume fraction] 40.1 % Low 40.7-50.3 [facility] Comment on above: Performed By: #### C OVRB #### [address] [address] [employer]: Hira Pastrana MD Hemoglobin (Bld) [Mass/Vol] 13.0 g/dL Normal 13.0-17.0 [facility] Comment on above: Performed By: #### C OVRB #### [address] [address] [employer]: Hira Pastrana MD Immature granulocytes/100 WBC (Bld) 1 % High 0 [facility] Comment on above: Performed By: #### C OVRB #### [address] [address] [employer]: Hira Pastrana MD Lymphocytes (Bld) [#/Vol] 1.02 10*3/uL Low 1.10-3.70 [facility] Comment on above: Performed By: #### C OVRB #### [address] [address] [employer]: Hira Pastrana MD Lymphocytes/100 WBC (Bld) 8 % Low 24-43 [facility] Comment on above: Performed By: #### C OVRB #### [address] [address] [employer]: Hira Pastrana MD MCH (RBC) [Entitic mass] 30.4 pg Normal 25.2-33.5 [facility] Comment on above: Performed By: #### C OVRB #### [address] [address] [employer] Furniture: Hira Pastrana MD MCHC (RBC) [Mass/Vol] 32.4 g/dL Normal 28.4-34.8 [facility] Comment on above: Performed By: #### C OVRB #### [address] [address] [employer] Furniture: Hira Pastrana MD MCV (RBC) [Entitic vol] 93.7 fL Normal 82.6-102.9 [facility] Comment on above: Performed By: #### C OVRB #### [address] [address] [employer] Furniture: Hira Pastrana MD Monocytes (Bld) [#/Vol] 0.69 10*3/uL Normal 0.10-1.20 [facility] Comment on above: Performed By: #### C OVRB #### [address] [address] [employer]er Furniture: Hira Pastrana MD Monocytes/100 WBC (Bld) 5 % Normal 3-12 [facility] Comment on above: Performed By: #### C OVRB #### [address] [address] [employer] Furniture: Hira Pastrana MD Neutrophil (Seg) 86 % High 36-65 [facility] Comment on above: Performed By: #### C OVRB #### [address] [address] [employer] Furniture: Hira Pastrana MD NRBC Automated 0.0 per 100 WBC Normal 0.0 [facility] Comment on above: Performed By: #### C OVRB #### [address] [address] [employer] Furniture: Hira Pastrana MD Platelet mean volume (Bld) [Entitic vol] 9.5 fL Normal 8.1-13.5 [facility] Comment on above: Performed By: #### C OVRB #### [address] [address] [employer] Furniture: Hira Pastrana MD Platelets (Bld) [#/Vol] 320 10*3/uL Normal 138-453 [facility] Comment on above: Performed By: #### C OVRB #### [address] [address] [employer]er Furniture: Hira Pastrana MD RBC (Bld) [#/Vol] 4.28 10*6/uL Normal 4.21-5.77 [facility] Comment on above: Performed By: #### C OVRB #### [address] [address] [employer] Furniture: Hira Pastrana MD WBC (Bld) [#/Vol] 13.3 10*3/uL High 3.5-11.3 [facility] Comment on above: Performed By: #### C OVRB #### [address] [address] [employer]er Furniture: Hira Pastrana MD Auto Diff Performed NOT REPORTED Normal [facility] Comment on above: Performed By: #### C OVRB #### [address] [address] [employer]er Furniture: Hira Pastrana MD Platelet Estimate NOT REPORTED Normal [facility] Comment on above: Performed By: #### C OVRB #### [address] [address] [employer] Furniture: Hira Pastrana MD RBC morphology finding Nom (Bld) NOT REPORTED Normal [facility] Comment on above: Performed By: #### C OVRB #### [address] [address] [employer]er Furniture: Hira aPstrana MD WBC Morphology NOT REPORTED Normal [facility] Comment on above: Performed By: #### C OVRB #### [facility] [address] [place] [address] Detailer Furniture: Hira Pastrana MD CT CHEST ABDOMEN PELVIS W CO NTRASTon 04-14-2021 CT CHEST ABDOMEN PELVIS W CONTRAST EXAMINATION: CT OF THE CHEST, ABDOMEN, AND PELVIS WITH CONTRAST 04/13/2021 9:51 pm TECHNIQUE: CT of the chest, abdomen and pelvis was performed with the administration of intravenous contrast. Multiplanar reformatted images are provided for review. Dose modulation, iterative reconstruction, and/or weight based adjustment of the mA/kV was utilized to reduce the radiation dose to as low as reasonably achievable. COMPARISON: Chest x-ray 04/13/2021 HISTORY: ORDERING SYSTEM PROVIDED HISTORY: Trauma TECHNOLOGIST PROVIDED HISTORY: Trauma Decision Support Exception - unselect if not a suspected or confirmed emergency medical condition->Emergency Medical Condition (MA) Reason for Exam: trauma Acuity: Acute Type of Exam: Initial FINDINGS: Chest: Mediastinum: Cardiomegaly. Aorta is mildly prominent 4.2 cm in size. There are aortic vascular calcifications. No pericardial effusion. No suspicious mediastinal or hilar adenopathy. Lungs/pleura: There is a right-sided chest tube in situ. There is right-sided pneumothorax approximately 20% in size. There is a right posterior diaphragmatic defect with herniation of omental fat. Bibasilar consolidative changes suggestive of bibasilar atelectasis. Mild interstitial edema. Coronary calcifications. Soft Tissues/Bones: There is a right clavicle fracture with mild comminution involving the distal 3rd as partially visualized. Right 1st rib question 2nd rib fracture. 3rd rib fracture laterally. There is right 5th 6 and 7th rib fractures laterally. Probable hemangioma involving T5. Superior plate depression at T4 and T6. Question defect involving T5 as well. Abdomen/Pelvis: Organs: Hypoattenuation liver suggesting fatty infiltration. Periportal edema involving liver. Gallbladder is absent. Otherwise the spleen, adrenal glands and pancreas unremarkable.. Right kidney is absent. Lobulated configuration left kidney. Multiple areas of scarring identified. Left renal cysts noted. No hydronephrosis. No perinephric collections. GI/Bowel: Mild retained stool. No bowel obstruction. Mild retained stool rectosigmoid junction may represent fecal impaction constipation. Pelvis: Mild bladder distention. Prostate unremarkable. Small fat containing right inguinal hernia. Peritoneum/Retroperitone um: Aortic vascular calcifications. Aorta is nonaneurysmal. Bones/Soft Tissues: Degenerate changes lumbar spine. Sclerotic lesion at L1 noted nonspecific. IMPRESSION: Grade 2 right chest wall injury with multiple right-sided rib fractures. Right clavicle fracture mild comminution. Right-sided pneumothorax chest tube in situ. Findings suspicious for fractures involving the thoracic spine notably T4 through T6.. No acute posttraumatic process involving the abdomen pelvis. Interpreted by: Gene Blank MD Signed by: Gene Blank MD 04/13/21 Final result Normal [facility] Drug Scr, Abuse, Uron 2020 Amphetamine(s),Ur Negative Normal NEG [facility] Comment on above: Result Comment: (Positive cutoff 1000 ng/mL) Performed By: #### LETTY YATES, UMICAO #### [facility] [address] [place] [address] [employer]iture: Hira Pastrana MD Barbiturate(s),Ur Negative Normal NEG [facility] Comment on above: Result Comment: (Positive cutoff 200 ng/mL) Performed By: #### Speedy DILLARD UA, UMICAO #### [facility] [address] [place] [address] [employer] Furniture: Hira Pastrana MD Benzodiazepine(s) Negative Normal NEG [facility] Comment on above: Result Comment: (Positive cutoff 200 ng/mL) Performed By: #### Speedy DILLARD UA, UMICAO #### [facility] [address] [place] [address] Detailer Furniture: Hira Pastrana MD Cannabinoid(s),Ur Positive Abnormal NEG [facility] Comment on above: Result Comment: (Positive cutoff 50 ng/mL) Performed By: #### Speedy DILLARD UA, UMICAO #### [facility] [address] [place] [address] [employer] Furniture: Hira Pastrana MD Cocaine Metabolite Negative Normal NEG [facility] Comment on above: Result Comment: (Positive cutoff 300 ng/mL) Performed By: #### LETTY YATES UMICAO #### [facility] [address] [place] [address] [employer] Furniture: Hira Pastrana MD Interpretive Info Assay provides medic al screening only. The absence of expected drug(s) and/or Normal [facility] Comment on above: Result Comment: meta bolite(s) may indicate diluted or adulterated urine, limitations of testing or timing of collection. Testing for legal purposes should be confirmed by another method. To request confirmation of test result, please call the lab within 7 days of sample submission. Performed By: #### LETTY YATES UMICAO #### [facility] [address] [place] [address] [employer] Furniture: Hira Pastrana MD Methadone Ql (U) Negative Normal NEG [facility] Comment on above: Result Comment: (Positive cutoff 300 ng/mL) Performed By: #### LETTY YATES UMICAO #### [employer] [address] [place] [address] Detailer Furniture: Hira Pastraan MD Opiate(s), Ur Negative Normal NEG [facility] Comment on above: Result Comment: (Positive cutoff 300 ng/mL) Performed By: #### LETTY YATES UMICAO #### [facility] [facility] [address] [place] [address] [employer]er Furniture: Hira Pastrana MD Oxycodone, Urine Negative Normal NEG [facility] Comment on above: Result Comment: (Positive cutoff 100 ng/mL) Performed By: #### LETTY YATES, UMICAO #### [facility] [facility] [address] [place] [address] [employer] Furniture: Hira Pastrana MD Phencyclidine, Ur Negative Normal NEG [facility] Comment on above: Result Comment: (Positive cutoff 25 ng/mL) Performed By: #### D AU, UA, UMICAO #### [facility] [address] [place] [address] [employer] Furniture: Hira Pastrana MD Buprenorphrine, Ur NOT REPORTED Normal NEG [facility] Comment on above: Performed By: #### D AU, UA, UMICAO #### [facility] [address] [place] [address] [employer] Furniture: Hira Pastrana MD MDMA, Urine NOT REPORTED Normal NEG [facility] Comment on above: Performed By: #### D AU, UA, UMICAO #### [facility] [address] [place] [address] [employer]er Furniture: Hira Pastrana MD Methamphetamine, Ur NOT REPORTED Normal NEG [facility] Comment on above: Performed By: #### D AU UA, UMICAO #### [facility] [address] [place] [address] [employer]iture: Hira Pastrana MD Propoxyphene,Urine NOT REPORTED Normal NEG [facility] Comment on above: Performed By: #### D AU, UA, UMICAO #### [facility] [address] [place] [address] [employer] Furniture: Hira Pastrana MD Tricyclic antidepressants Screen Ql (U) NOT REPORTED Normal NEG [facility] Comment on above: Performed By: #### D AU, UA, UMICAO #### [facility] [address] [place] [address] Detailer Furniture: Hira Pastrana MD [id number] 04-14-2021 SARS-CoV-2 (COVID-19) RNA DEVON+probe Ql (Unsp spec) Not detected Normal NOTDET [facility] Comment on above: Result Comment: Rapid NAAT: The specimen is NEGATIVE for SARS-CoV-2, the novel coronavirus associated with COVID-19. The ID NOW COVID-19 assay is designed to detect the virus that causes COVID-19 in patients with signs and symptoms of infection who are suspected of COVID-19. An individual without symptoms of COVID-19 and who is not shedding SARS-CoV-2 virus would expect to have a negative (not detected) result in this assay. Negative results should be treated as presumptive and, if inconsistent with clinical signs and symptoms or necessary for patient management, should be tested with an alternative molecular assay. Negative results do not preclude SARS-CoV-2 infection and should not be used as the sole basis for patient management decisions. Fact sheet for Healthcare Providers: https://www.fda.gov/media/024528/download Fact sheet for Patients: https://www.fda.gov/media/981825/download Methodology: Isothermal Nucleic Acid Amplification Performed By: #### C OVRB #### [place] [address] Detailer Furniture: Hira Pastrana MD Trauma Profileon 04-14-2021 (cont.) Normal [facility] Comment on above: Result Comment: Aver age GFR for 70 or more years old: 75 mL/min/1.73sq m Chronic Kidney Disease: <60 mL/min/1.73sq m Kidney failure: <15 mL/min/1.73sq m eGFR calculated using average adult body mass. Additional eGFR calculator available at: http://www.[employer]/multiple_crcl_2012.htm Performed By: #### E RTPF #### [place] [address] Detailer Furniture: Hira Pastrana MD Anion gap [Moles/Vol] 10 mmol/L Normal 9-17 [facility] Comment on above: Performed By: #### E RTPF #### [facility] [address] [place] [address] Detailer Furniture: Hira Pastrana MD Chloride [Moles/Vol] 105 mmol/L Normal 98-107 [facility] Comment on above: Performed By: #### E RTPF #### [address] [address] Detailer Furniture: Hira Pastrana MD CO2 [Moles/Vol] 25 mmol/L Normal 20-31 [facility] Comment on above: Performed By: #### E RTPF #### [address] [address] Detailer Furniture: Hira Pastrana MD Creatinine [Mass/Vol] 1.29 mg/dL High 0.70-1.20 [facility] Comment on above: Performed By: #### E RTPF #### [address] [address] Detailer Furniture: Hira Pastrana MD Ethanol [Mass/Vol] mg/dL Normal <10 [facility] Comment on above: Performed By: #### E RTPF #### [address] [address] Detailer Furniture: Hira Pastrana MD Ethanol percent <0.010 Normal <0.010 [facility] Comment on above: Performed By: #### E RTPF #### [address] [address] Detailer Furniture: Hira Pastrana MD GFR, Amer >60 Normal >60 [facility] Comment on above: Performed By: #### E RTPF #### [address] [address] Detailer Furniture: Hira Pastrana MD GFR,non Amer 54 mL/min Low >60 [facility] Comment on above: Performed By: #### E RTPF #### [address] [address] Detailer Furniture: Hira Pastrana MD Glucose [Mass/Vol] 180 mg/dL High 70-99 [facility] Comment on above: Performed By: #### E RTPF #### [address] [address] Detailer Furniture: Hira Pastrana MD Potassium [Moles/Vol] 4.4 mmol/L Normal 3.7-5.3 [facility] Comment on above: Performed By: #### E RTPF #### [address] [address] Detailer Furniture: Hira Pastrana MD Sodium [Moles/Vol] 140 mmol/L Normal 135-144 [facility] Comment on above: Performed By: #### E RTPF #### [address] [address] Detailer Furniture: Hira Pastrana MD Urea nitrogen [Mass/Vol] 17 mg/dL Normal 8-23 [facility] Comment on above: Performed By: #### E RTPF #### [address] [address] Detailer Furniture: Hira Pastrana MD aPTT Coag (Bld) [Time] 22.5 s Normal 20.5-30.5 [facility] Comment on above: Result Comment: IV Heparin Therapy Range: 48.6-77.8 Performed By: #### E RTPF #### [address] [address] Detailer Furniture: Hira Pastrana MD INR Coag (PPP) [Relative time] 1.0 {INR} Normal [facility] Comment on above: Result Comment: Therapeutic Range: Moderate Anticoagulant Intensity: INR = 2.0-3.0 High Anticoagulant Intensity: INR = 2.5-3.5 Performed By: #### E RTPF #### [address] [address] Detailer Furniture: Hira Pastrana MD PT Coag (PPP) [Time] 10.6 s Normal 9.1-12.3 [facility] Comment on above: Performed By: #### E RTPF #### [address] [address] Detailer Furniture: Hira Pastrana MD Body Temp. 37.0 Normal [facility] Comment on above: Performed By: #### E RTPF #### [address] [address] Detailer Furniture: Hira Pastrana MD Carboxy Hgb 0.7 % Normal 0-5 [facility] Comment on above: Result Comment: Reference Range: Non-Smokers 0-2% Average Smoker 2-4% Heavy Smoker <10% Performed By: #### E RTPF #### [address] [address] Detailer Furniture: Hira Pastrana MD FIO2 INFORMATION NOT PROVIDED [facility] Comment on above: Performed By: #### E RTPF #### [address] [address] Detailer Furniture: Hira Pastrana MD HCO3 (Bld) [Moles/Vol] 27.4 mmol/L Normal 24-30 [facility] Comment on above: Performed By: #### E RTPF #### [address] [address] Detailer Furniture: Hira Pastrana MD Oxygen (Bld) [Partial pressure] 28.1 mm[Hg] Low 30-50 [facility] Comment on above: Performed By: #### E RTPF #### [address] [address] Detailer Furniture: Hira Pastrana MD Oxygen saturation in Blood 46.4 % Low 60.0-85.0 [facility] Comment on above: Performed By: #### E RTPF #### [address] [address] Detailer Furniture: Hira Pastrana MD pCO2 56.5 High 39-55 [facility] Comment on above: Performed By: #### E RTPF #### [address] [address] Detailer Furniture: Hira Pastrana MD pH (Bld) 7.307 [pH] Low 7.320-7.420 [facility] Comment on above: Performed By: #### E RTPF #### [address] [address] Detailer Furniture: iHra Pastrana MD Positive Base Excess 0.4 mmol/L Normal 0.0-2.0 [facility] Comment on above: Performed By: #### E RTPF #### [address] [address] Detailer Furniture: Hira Pastrana MD Erythrocyte distribution width (RBC) [Ratio] 12.9 % Normal 11.8-14.4 [facility] Comment on above: Performed By: #### E RTPF #### [address] [address] Detailer Furniture: Hira Pastrana MD Hematocrit (Bld) [Volume fraction] 42.7 % Normal 40.7-50.3 [facility] Comment on above: Performed By: #### E RTPF #### [address] [address] Detailer Furniture: Hira Pastrana MD Hemoglobin (Bld) [Mass/Vol] 13.8 g/dL Normal 13.0-17.0 [facility] Comment on above: Performed By: #### E RTPF #### [address] [address] Detailer Furniture: Hira Pastrana MD MCH (RBC) [Entitic mass] 30.1 pg Normal 25.2-33.5 [facility] Comment on above: Performed By: #### E RTPF #### [address] [address] Detailer Furniture: Hira Pastrana MD MCHC (RBC) [Mass/Vol] 32.3 g/dL Normal 28.4-34.8 [facility] Comment on above: Performed By: #### E RTPF #### [address] [address] Detailer Furniture: Hira Pastrana MD MCV (RBC) [Entitic vol] 93.2 fL Normal 82.6-102.9 [facility] Comment on above: Performed By: #### E RTPF #### [address] [address] Detailer Furniture: Hira Pastrana MD NRBC Automated 0.0 per 100 WBC Normal 0.0 [facility] Comment on above: Performed By: #### E RTPF #### [address] [address] Detailer Furniture: Hira Pastrana MD Platelet mean volume (Bld) [Entitic vol] 8.9 fL Normal 8.1-13.5 [facility] Comment on above: Performed By: #### E RTPF #### [address] [address] Detailer Furniture: Hira Pastrana MD Platelets (Bld) [#/Vol] 283 10*3/uL Normal 138-453 [facility] Comment on above: Performed By: #### E RTPF #### [address] [address] Detailer Furniture: Hira Pastrana MD RBC (Bld) [#/Vol] 4.58 10*6/uL Normal 4.21-5.77 [facility] Comment on above: Performed By: #### E RTPF #### [address] [address] Detailer Furniture: Hira Pastrana MD WBC (Bld) [#/Vol] 18.5 10*3/uL High 3.5-11.3 [facility] Comment on above: Performed By: #### E RTPF #### [address] [address] Detailer Furniture: Hira Pastrana MD Type + Screenon 04-14-2021 Type + Screen Sample Expiration 04/16/2021,2359 Arm Band Number BE [id number] ABO/Rh(D) B POSITIVE Antibody Screen NEGATIVE Normal [facility] Comment on above: Performed By: #### T YS #### [address] [address] Detailer Furniture: Hira Pastrana MD Urinalysis, Routineon 2020 Bilirubin, SemiQt,Ur Negative Normal NEG [facility] Comment on above: Performed By: #### Speedy DILLARD UA, UMICAO #### [address] [address] Detailer Furniture: Hira Pastrana MD Blood, Urine Negative Normal NEG [facility] Comment on above: Performed By: #### Speedy DILLARD UA, UMICAO #### [address] [address] Detailer Furniture: Hira Pastrana MD Clarity (U) CLEAR Normal CLEAR [facility] Comment on above: Performed By: #### Speedy DILLRAD UA, UMICAO #### [address] [address] Detailer Furniture: Hira Pastrana MD Color (U) YELLOW Normal YEL [facility] Comment on above: Performed By: #### Speedy AU UA, UMICAO #### [address] [place] [address] Detailer Furniture: Hira Pastrana MD Glucose Ql (U) Negative Normal NEG [facility] Comment on above: Performed By: #### Speedy DILLARD UA, UMICAO #### [facility] [address] [place] [address] Detailer Furniture: Hira Pastrana MD Ketones Ql (U) Negative Normal NEG [facility] Comment on above: Performed By: #### Speedy AU UA, UMICAO #### [facility] [address] [place] [address] Detailer Furniture: Hira Pastrana MD Leukocyte esterase Test strip Ql (U) Negative Normal NEG [facility] Comment on above: Performed By: #### Speedy DILLARD UA, UMICAO #### [address] [address] Detailer Furniture: Hira Pastrana MD Nitrite,Ur Negative Normal NEG [facility] Comment on above: Performed By: #### Speedy DILLARD UA, UMICAO #### [address] [address] Detailer Furniture: Hira Pastrana MD PH,Ur 7.5 Normal 5.0-8.0 [facility] Comment on above: Performed By: #### Speedy DILLARD UA, UMICAO #### [facility] [address] [place] [address] Detailer Furniture: Hira Pastrana MD Protein Ql (U) TRACE Abnormal NEG [facility] Comment on above: Performed By: #### Speedy DILLARD UA, UMICAO #### [facility] [address] [place] [address] Detailer Furniture: Hira Pastrana MD Spec. Burt,Ur 1.043 High 1.005-1.030 [facility] Comment on above: Performed By: #### D AU, UA, UMICAO #### [facility] [place] [address] Detailer Furniture: Hira Pastrana MD Urobilinogen,Ur Normal Normal NORM [facility] Comment on above: Performed By: #### D AU, UA, UMICAO #### [facility] [address] [place] [address] Detailer Furniture: Hira Pastrana MD Comment NOT REPORTED Normal [facility] Comment on above: Performed By: #### D AU, UA, UMICAO #### [facility] [address] [place] [address] Detailer Furniture: Hira Pastrana MD Urinalysis,Microon 1 ----- Normal [facility] Comment on above: Performed By: #### D AU, UA, UMICAO #### [facility] [address] [place] [address] Detailer Furniture: Hira Pastrana MD Casts 0 TO 2 HYALINE Normal 0-8 [facility] Comment on above: Result Comment: Refe rence range defined for non-centrifuged specimen. Performed By: #### D AU, UA, UMICAO #### [facility] [address] [place] [address] Detailer Furniture: Hira Pastrana MD Epithelial cells LM Ql (Urine sed) 0 TO 2 Normal 0-5 [facility] Comment on above: Performed By: #### D AU, UA, UMICAO #### [facility] [address] [place] [address] Detailer Furniture: Hira Pastrana MD Urine RBC's None Normal 0-4 [facility] Comment on above: Result Comment: Refe rence range defined for non-centrifuged specimen. Performed By: #### D AU, UA, UMICAO #### [facility] [address] [place] [address] Detailer Furniture: Hira Pastrana MD Urine WBC's None Normal 0-5 [facility] Comment on above: Performed By: #### D AU, UA, UMICAO #### [facility] [address] [place] [address] Detailer Furniture: Hira Pastrana MD Amorphous sediment LM Ql (Urine sed) NOT REPORTED Normal NONE [facility] Comment on above: Performed By: #### D AU, UA, UMICAO #### [facility] [address] [place] [address] Detailer Furniture: Hira Pastrana MD Bacteria NOT REPORTED Normal NONE [facility] Comment on above: Performed By: #### D AU, UA, UMICAO #### [facility] [address] [place] [address] Detailer Furniture: Hira Pastrana MD Crystals LM Nom (Urine sed) NOT REPORTED Normal NONE [facility] Comment on above: Performed By: #### D AU, UA, UMICAO #### [facility] [address] [place] [address] Detailer Furniture: Hira Pastrana MD Epithelial, Renal NOT REPORTED Normal 0 [facility] Comment on above: Performed By: #### D AU, UA, UMICAO #### [facility] [address] [place] [address] Detailer Furniture: Hira Pastrana MD Mucus Strands NOT REPORTED Normal NONE [facility] Comment on above: Performed By: #### D AU, UA, UMICAO #### [facility] [address] [place] [address] Detailer Furniture: Hira Pastrana MD Other Observations NOT REPORTED Normal NREQ [facility] Comment on above: Performed By: #### D AU, UA, UMICAO #### [facility] [address] [place] [address] Detailer Furniture: Hira Pastrana MD Trichomonas NOT REPORTED Normal NONE [facility] Comment on above: Performed By: #### D LETTY DILLARD, UMICAO #### [facility] [address] [place], [place] [id number] Detailer Furniture: Hira Pastrana MD Yeast NOT REPORTED Normal NONE [facility] Comment on above: Performed By: #### D LETTY DILLARD, UMICAO #### [facility] [address] [place] [address] Detailer Furniture: Hira Pastrana MD Vitamin D 25 OHon 04-14-2021 Vitamin D 25 [place] 54.1 ng/mL Normal 30.0-100.0 [facility] Comment on above: Result Comment: Reference Range: Vitamin D status Range Deficiency <20 ng/mL Mild Deficiency 20-30 ng/mL Sufficiency 30-100 ng/mL Toxicity >100 ng/mL Performed By: #### C OVRB #### [facility] [address] [place] [address] Detailer Furniture: Hira Pastrana MD XR CHEST (SINGLE VIEW FRONTA L)on 04-14-2021 XR CHEST (SINGLE VIEW FRONTAL) EXAMINATION: ONE XRAY VIEW OF THE CHEST 04/14/2021 12:03 am COMPARISON: Chest x-ray 04/13/2021. CT chest same day. HISTORY: ORDERING SYSTEM PROVIDED HISTORY: chest tube insertion TECHNOLOGIST PROVIDED HISTORY: chest tube insertion Reason for Exam: chest tube placement supine port FINDINGS: Right chest tube with tip projecting over the right apex noted. Cardiomediastinal silhouette is enlarged. Small right hemopneumothorax noted with small residual pneumothorax component best appreciated at the right lung base. Perihilar atelectasis. Multiple rib and right clavicle fractures. IMPRESSION: Right chest tube insertion. Small residual right hemopneumothorax. Interpreted by: Olivia Grande DO Signed by: Olivia Grande DO 04/14/21 Final result Normal [facility] XR CHEST PORTABLEon 04-14-20 XR CHEST PORTABLE EXAMINATION: ONE XRAY VIEW OF THE CHEST 04/14/2021 6:51 am COMPARISON: 04/13/2021 HISTORY: ORDERING SYSTEM PROVIDED HISTORY: R pneumo with chest tube, rib fx TECHNOLOGIST PROVIDED HISTORY: R pneumo with chest tube, rib fx FINDINGS: There is a large bore catheter identified in the right chest, with a small amount of fluid seen along the pleural space laterally, greatest at the right upper lobe and lung base. The patient is slightly rotated. Cardiomegaly. Mediastinal structures appear stable. Central vascular congestion. Increased left basilar airspace disease. IMPRESSION: Right-sided rib fractures are identified, with the right basilar pneumothorax seen on the previous examination now showing interval development of a small amount of pleural fluid. No significant pneumothorax is seen. Interval development of left basilar airspace disease suggestive of atelectasis. Cardiomegaly with vascular congestion. Interpreted by: Luis Angel Arias MD Signed by: Luis Angel Arias MD 04/14/21 Final result Normal [facility] XR CHEST PORTABLE EXAMINATION: ONE XRAY VIEW OF THE CHEST 04/13/2021 10:02 pm COMPARISON: None. HISTORY: ORDERING SYSTEM PROVIDED HISTORY: Trauma TECHNOLOGIST PROVIDED HISTORY: Trauma FINDINGS: There is moderate cardiomegaly and pulmonary vascular congestion. Mild interstitial edema. Mild bilateral pleural effusions. No pneumothorax evident on this supine view. A right basilar chest tube is in place. Surrounding structures are noted for comminuted right mid clavicle fracture and lateral right 5th rib fracture. IMPRESSION: Mild congestive failure. Comminuted right mid clavicle fracture. Lateral right 5th rib fracture. Interpreted by: Rolando Tobin Signed by: Rolando Tobin 04/13/21 Final result Normal [facility] XR CLAVICLE RIGHTon 04-14-20 XR CLAVICLE RIGHT EXAMINATION: TWO XRAY VIEWS OF THE RIGHT CLAVICLE 04/14/2021 2:07 am COMPARISON: None. HISTORY: ORDERING SYSTEM PROVIDED HISTORY: trauma TECHNOLOGIST PROVIDED HISTORY: trauma Reason for Exam: fall supine FINDINGS: Minimally displaced oblique mid shaft left clavicle fracture with mild comminution. Posterolateral mildly displaced right rib fracture. Likely hemothorax at the apex laterally. Right apical chest tube in place. IMPRESSION: Mid shaft mildly displaced mildly comminuted right clavicle fracture. Mildly displaced posterolateral right 1st rib fracture with associated localized apical hemothorax and apical chest tube in place. Interpreted by: Rolando Tobin Signed by: Rolando Tobin 04/14/21 Final result Normal [facility] Trauma Profileon 04-13-2021 Blood Bank BILL FOR SERVICES PERFORMED Normal [facility] Comment on above: Performed By: #### E RTPF #### [facility] [address] [place] [address] Detailer Furniture: Hira Pastrana MD Maximo Test NOT REPORTED Normal [facility] Comment on above: Performed By: #### E RTPF #### [address] [address] Detailer Furniture: Hira Pastrana MD Methemoglobin NOT REPORTED Normal 0.0-1.5 [facility] Comment on above: Performed By: #### E RTPF #### [address] [address] Detailer Furniture: Hira Pastrana MD Mode NOT REPORTED Normal [facility] Comment on above: Performed By: #### E RTPF #### [address] [address] Detailer Furniture: Hira Pastrana MD Negative Base Excess NOT REPORTED Normal 0.0-2.0 [facility] Comment on above: Performed By: #### E RTPF #### [address] [address] Detailer Furniture: Hira Pastrana MD Notification Time NOT REPORTED Normal [facility] Comment on above: Performed By: #### E RTPF #### [facility] [address] [place] [address] Detailer Furniture: Hira Pastrana MD Notification: NOT REPORTED Normal [facility] Comment on above: Performed By: #### E RTPF #### [address] [address] Detailer Furniture: Hira Pastrana MD O2 Device/Flow/% NOT REPORTED Normal [facility] Comment on above: Performed By: #### E RTPF #### [address] [address] Detailer Furniture: Hira Pastrana MD Oxyhemoglobin NOT REPORTED Normal 95.0-98.0 [facility] Comment on above: Performed By: #### E RTPF #### [address] [address] Detailer Furniture: Hira Pastrana MD Pco2 Adj'd for Temp. NOT REPORTED Normal 39-55 [facility] Comment on above: Performed By: #### E RTPF #### [address] [address] Detailer Furniture: Hira Pastrana MD PEEP/CPAP NOT REPORTED Normal [facility] Comment on above: Performed By: #### E RTPF #### [address] [address] Detailer Furniture: Hira Pastrana MD pH Adjst'd for Temp. NOT REPORTED Normal 7.320-7.[address] [facility] Comment on above: Performed By: #### E RTPF #### [address] [address] Detailer Furniture: Hira Pastrana MD pO2 Adj'd for Temp. NOT REPORTED Normal 30-50 [facility] Comment on above: Performed By: #### E RTPF #### [address] [address] Detailer Furniture: Hira Pastrana MD PSV NOT REPORTED Normal [facility] Comment on above: Performed By: #### E RTPF #### [address] [address] Detailer Furniture: Hira Pastrana MD Pt. Position NOT REPORTED Normal [facility] Comment on above: Performed By: #### E RTPF #### [address] [address] Detailer Furniture: Hira Pastrana MD Respiratory Rate NOT REPORTED Normal [facility] Comment on above: Performed By: #### E RTPF #### [address] [address] Detailer Furniture: Hira Pastrana MD Set Rate NOT REPORTED Normal [facility] Comment on above: Performed By: #### E RTPF #### [address] [address] Detailer Furniture: Hira Pastrana MD Site Drawn NOT REPORTED Normal [facility] Comment on above: Performed By: #### E RTPF #### [address] [address] Detailer Furniture: Hira Pastrana MD Staging: NOT REPORTED Normal [facility] Comment on above: Performed By: #### E RTPF #### [address] [address] Detailer Furniture: Hira Pastrana MD Text for Respiratory NOT REPORTED Normal [facility] Comment on above: Performed By: #### E RTPF #### [address] [address] Detailer Furniture: Hira Pastrana MD Total Hb NOT REPORTED Normal 12.0-16.0 [facility] Comment on above: Performed By: #### E RTPF #### [address] [address] Detailer Furniture: Hira Pastrana MD Total Rate NOT REPORTED Normal [facility] Comment on above: Performed By: #### E RTPF #### [address] [address] Detailer Furniture: Hira Pastrana MD VT NOT REPORTED Normal [facility] Comment on above: Performed By: #### E RTPF #### [facility] [address] [place] [address] Detailer Furniture: Hira Pastrana MD Vital Signs Date Time Vital Sign Value Performing Clinician Ingrid [facility] 02-11-2024 09:52-0400 Body temperature 98.6 [degF] [id number] 02-11-2024 09:52-0400 Diastolic blood pressure 72 mm[Hg] Via[facility] 02-11-2024 09:52-0400 Heart rate 57 /min Via[facility] 02-11-2024 09:52-0400 Respiratory rate 16 /min Via[facility] 02-11-2024 09:52-0400 Systolic blood pressure 125 mm[Hg] Via[facility] 11-08-2023 11:23-0500 Body height 188 cm Kiko Alexanderjose l PINEDA-PLASTER MIXER Work Phone: [facility] 11-08-2023 11:23-0500 Body mass index (BMI) [Ratio] 26.18 kg/m2 Kiko Alexander FARM OPERATIONS MANAGER-PLASTER MIXER Work Phone: [facility] 11-08-2023 11:23-0500 Body temperature 98.2 [degF] Kiko Alexander APRN-PLASTER MIXER Work Phone: [facility] 11-08-2023 11:23-0500 Body weight 92.49 kg Kiko Alexander APRN-PLASTER MIXER Work Phone: [facility] [facility] 11-08-2023 11:23-0500 Diastolic blood pressure 78 mm[Hg] Kiko Alexander FARM OPERATIONS MANAGER-PLASTER MIXER Work Phone: [facility] 11-08-2023 11:23-0500 Heart rate 66 /min Kiko Alexander FARM OPERATIONS MANAGER-PLASTER MIXER Work Phone: [facility] [place] 11-08-2023 11:23-0500 SaO2% (BldA) [Mass fraction] 98 % Kiko Alexander FARM OPERATIONS MANAGER-PLASTER MIXER Work Phone: [facility] [place] [facility] 11-08-2023 11:23-0500 Systolic blood pressure 130 mm[Hg] Kiko Alexander FARM OPERATIONS MANAGER-PLASTER MIXER Work Phone: [facility] 02-05-2023 09:43-0400 Blood Pressure Location Felicity RICE [facility] 02-05-2023 09:43-0400 Diastolic blood pressure 83 mm[Hg] Felicity RICE [facility] 02-05-2023 09:43-0400 Heart rate 56 /min Felicity RICE [facility] 02-05-2023 09:43-0400 Systolic blood pressure 145 mm[Hg] Felicity RICE [facility] 01-26-2022 09:47-0400 Blood Pressure Location Felicity RICE [facility] 01-26-2022 09:47-0400 Diastolic blood pressure 92 mm[Hg] Felicity RICE [facility] 01-26-2022 09:47-0400 Heart rate 52 /min Felicity RICE [facility] 01-26-2022 09:47-0400 Systolic blood pressure 139 mm[Hg] Felicity CASTANEDA [facility] [place] Encounters Encounter Date Encounter Type Care Provider Facility Start: 02-09-2025 ambulatory KIKO ALEXANDER Facili ty:[facility] Start: 04-09-2024 End: 04-09-2024 ambulatory [facility] Start: 04-09-2024 End: 04-09-2024 ambulatory [facility] Start: 03-25-2024 End: 03-25-2024 ambulatory [facility] Start: 02-11-2024 End: 02-12-[address] [facility] Facility:[facility] Start: 02-11-2024 End: 02-11-2024 Patient encounter procedure Balwinder Nirav GARNER [facility] Start: 11-08-2023 End: 11-08-2023 Patient encounter procedure Kiko J Alexander FARM OPERATIONS MANAGER-PLASTER MIXER Work Phone: [facility] Comment on above: Medicare annual well ness visit, subsequent (Primary Dx); DM type 2 with diabetic mixed hyperlipidemia ([facility]) ; Depression, major, in remission ([facility]); 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 ([facility]) Start: 11-08-2023 End: 11-08-2023 ambulatory [facility] Start: 10-07-2023 Refill Kiko gallardoo FARM OPERATIONS MANAGER-PLASTER MIXER [facility] Comment on above: DM type 2 with diabe tic mixed hyperlipidemia ([facility]) Start: 02-05-2023 End: 02-05-2023 Patient encounter procedure Felicity CASTANEDA [facility] Start: 01-29-2023 End: 01-30-[address] FELICITY CASTANEDA Facility:[facility] Start: 01-26-2022 End: 01-26-2022 Patient encounter procedure Felicity CASTANEDA [facility] [place] Start: 04-13-2021 End: 04-19-2021 Evaluation and management of inpatient JUN RODRIGUEZ [facility] Start: 05-24-2020 Patient encounter procedure Kiko Benjamin FARM OPERATIONS MANAGER-PLASTER MIXER Work Phone: [facility] Start: 05-24-2020 Encounter for genera l adult medical examination without abnormal findings [facility] Procedures Date Procedure Procedure Detail Performing Clinician Start: 11-08-2023 Hemoglobin glycosyla vania a1c Kiko J Alexander FARM OPERATIONS MANAGER-PLASTER MIXER Work Phone: Start: 11-08-2023 Adult depression scr eening assessment Kikomackenzie Alexander FARM OPERATIONS MANAGER-PLASTER MIXER Work Phone: Start: 05-30-2023 Adult depression scr eening assessment Kiko Alexander FARM OPERATIONS MANAGER-PLASTER MIXER Work Phone: Start: 01-29-[address] FELICITY CASTANEDA Comment on above: Performed By: #### P SAD #### [facility] [address] [place] [address] Dr. Leilani Rivas Start: 07-13-2010 Cystoscopy Felicity Telles Start: 07-13-2010 Urodynamic studies Topher CASTANEDA Total nephrectomy Felicity Telles Comment on above: right side, in 2000 Plan of Treatment Date Care Activity Detail Author Start: 07-23-2027 DTaP,Tdap and Td Vaccines (2 - Td or Tdap) DTaP,Tdap and Td Vaccines (2 - Td or Tdap) [facility] Start: 11-08-2024 Adult BMI Follow Up Plan Adult BMI Follow Up Plan [facility] Start: 11-08-2024 Adult BMI Screening Adult BMI Screening [facility] Start: 11-08-2024 Depression Screening Depression Screening [facility] Start: 11-08-2024 Fall Risk Screening Fall Risk Screening [facility] Start: 11-08-2024 Medicare Annual Wellness Visit Medicare Annual Wellness Visit [facility] Start: 11-08-2024 Tobacco Screening Tobacco Screening [facility] Start: 05-30-2024 Adult BMI Follow Up Plan Adult BMI Follow Up Plan [facility] Start: 05-30-2024 Adult BMI Screening Adult BMI Screening [facility] Start: 05-30-2024 Depression Screening Depression Screening [facility] Start: 05-30-2024 Fall Risk Screening Fall Risk Screening [facility] Start: 05-30-2024 Tobacco Screening Tobacco Screening [facility] Start: 05-07-2024 Tobacco Counseling Tobacco Counseling [facility] Start: 04-07-2024 End: 04-07-2024 Patient encounter procedure 04/07/2024 8:30 AM EDT Office Visit [facility] [address] [place] [id number] Kiko Alexander, FARM OPERATIONS MANAGER-PLASTER MIXER [address] [place] [address] [facility] Start: 11-08-2023 End: 11-08-2023 Patient encounter procedure 11/08/2023 11:00 AM EST Office Visit [facility] [address] [place] [phone] Kiko Alexander, FARM OPERATIONS MANAGER-PLASTER MIXER [address] [place] [address] [facility] Start: 11-07-2023 Medicare Annual Wellness Visit Medicare Annual Wellness Visit [facility] Start: 1996 Administration of varicella zoster vaccine Zoster (Shingles) Vaccine (1 of 2) [facility] Immunizations Immunization Date Immunization Notes Care Provider Anum silvestre 01-20-2019 pneumococcal conjuga te vaccine, 13 valent Kiko Alexander FARM OPERATIONS MANAGER-PLASTER MIXER Work Phone: [facility] Comment on above: Result Comment: 2023: [facility] 07-23-2017 tetanus toxoid, reduced diphtheria toxoid, and acellular pertussis vaccine, adsorbed Kiko Benjamin FARM OPERATIONS MANAGER-PLASTER MIXER Work Phone: [facility] NEGATED: Highlighted row has not occurred!02-11-2024 influenza virus vaccine, unspecified formulation Balwinder GARNER [facility] NEGATED: Highlighted row has not occurred!01-03-2021 influenza virus vaccine, unspecified formulation Felicity CASTANEDA [facility] Payers Date Payer Category Payer Private Health Insurance [facility] [id number] 2015 Private Health Insurance [employer] [id number] 2015-Present [phone] [address] [address] [place] [address] [id number] 2011 Medicare MEDICARE MEDICAR E PART A & B [id number] 2011-Present [phone] [address] [place] [address] [id number] 1959 Medicare [id number] 1959 Private Health Insurance [facility] [id number] 1946 Unknown [id number] 1946 Unknown [id number] 1946 Unknown [id number] 1946 Unknown [id number] 1946 Unknown [id number] 1946 Unknown [id number] 1946 Unknown [id number] 1946 Unknown [id number] Medicare [id number] Social History Date Type Detail Facility Tobacco chew tabacoo, Yes [facility] Start: 10-12-2020 End: 05-30-2023 Sex Assigned At Male [facility] Tobacco smoking status No Smokin g Status Entered [facility] Start: 11-07-2022 [facility] History of tobacco use Current smoker [facility] Start: 11-07-2022 Tobacco use and exposure User of smokeless tobacco [facility] History of tobacco use Chews Tobacco [facility] Start: 05-30-2023 End: 11-08-2023 Alcohol intake Current non-drinker of alcohol (finding) [facility] Start: 10-12-2020 End: 05-30-2023 History of Social function [facility] Adolescent depressio n screening assessment 0 [facility] Start: 1945 Sex Assigned At Not on file [facility] Start: 02-11-2024 Tobacco smoking status Never s moked tobacco (finding) [facility] Medical Equipment Procedure Code Equipment Code Equipment Origin al Text Equipment Identifier Dates Monitor blood lane gars 4 times daily, before meals and at bedtime [id number] Start: 07-26-2021 Functional Status Date Assessment Result Facility 02-11-2024 Functional Status N/A [facility] 02-05-2023 Functional Status N/A [facility] Clinical Notes 01-26-2022 to 02-11-2024 Kiko Alexander, FARM OPERATIONS MANAGER-PLASTER MIXER - 11/08/2023 11:15 AM EST Note Date & Type Note Facility 02-11-2024 Hospital Discharge instructions Patient Education 02/11/2024 10:12:41 Benign Prostatic Hyperplasia Benign Prostatic Hyperplasia Benign prostatic hyperplasia (BPH) is an enlarged prostate gland that is caused by the normal aging process. The prostate may get bigger as a man gets older. The condition is not caused by cancer. The prostate is a walnut-sized gland that is involved in the production of semen. It is located in front of the rectum and below the bladder. The bladder stores urine. The urethra carries stored urine out of the body. An enlarged prostate can press on the urethra. This can make it harder to pass urine. The buildup of urine in the bladder can cause infection. Back pressure and infection may progress to bladder damage and kidney (renal) failure. What are the causes? This condition is part of the normal aging process. However, not all men develop problems from this condition. If the prostate enlarges away from the urethra, urine flow will not be blocked. If it enlarges toward the urethra and compresses it, there will be problems passing urine. What increases the risk? This condition is more likely to develop in men older than 50 years. What are the signs or symptoms? Symptoms of this condition include: Getting up often during the night to urinate. Needing to urinate frequently during the day. Difficulty starting urine flow. Decrease in size and strength of your urine stream. Leaking (dribbling) after urinating. Inability to pass urine. This needs immediate treatment. Inability to completely empty your bladder. Pain when you pass urine. This is more common if there is also an infection. Urinary tract infection (UTI). How is this diagnosed? This condition is diagnosed based on your medical history, a physical exam, and your symptoms. Tests will also be done, such as: A post-void bladder scan. This measures any amount of urine that may remain in your bladder after you finish urinating. A digital rectal exam. In a rectal exam, your health care provider checks your prostate by putting a lubricated, gloved finger into your rectum to feel the back of your prostate gland. This exam detects the size of your gland and any abnormal lumps or growths. An exam of your urine (urinalysis). A prostate specific antigen (PSA) screening. This is a blood test used to screen for prostate cancer. An ultrasound. This test uses sound waves to electronically produce a picture of your prostate gland. Your health care provider may refer you to a specialist in kidney and prostate diseases (urologist). How is this treated? Once symptoms begin, your health care provider will monitor your condition (active surveillance or watchful waiting). Treatment for this condition will depend on the severity of your condition. Treatment may include: Observation and yearly exams. This may be the only treatment needed if your condition and symptoms are mild. Medicines to relieve your symptoms, including: ?Medicines to shrink the prostate. ?Medicines to relax the muscle of the prostate. Surgery in severe cases. Surgery may include: ?Prostatectomy. In this procedure, the prostate tissue is removed completely through an open incision or with a laparoscope or robotics. ?Transurethral resection of the prostate (TURP). In this procedure, a tool is inserted through the opening at the tip of the penis (urethra). It is used to cut away tissue of the inner core of the prostate. The pieces are removed through the same opening of the penis. This removes the blockage. ?Transurethral incision (TUIP). In this procedure, small cuts are made in the prostate. This lessens the prostate's pressure on the urethra. ?Transurethral microwave thermotherapy (TUMT). This procedure uses microwaves to create heat. The heat destroys and removes a small amount of prostate tissue. ?Transurethral needle ablation (TUNA). This procedure uses radio frequencies to destroy and remove a small amount of prostate tissue. ?Interstitial laser coagulation (ILC). This procedure uses a laser to destroy and remove a small amount of prostate tissue. ?Transurethral electrovaporization (TUVP). This procedure uses electrodes to destroy and remove a small amount of prostate tissue. ?Prostatic urethral lift. This procedure inserts an implant to push the lobes of the prostate away from the urethra. Follow these instructions at home: Take [id number] and prescription medicines only as told by your health care provider. Monitor your symptoms for any changes. Contact your health care provider with any changes. Avoid drinking large amounts of liquid before going to bed or out in public. Avoid or reduce how much caffeine or alcohol you drink. Give yourself time when you urinate. Keep all follow-up visits. This is important. Contact a health care provider if: You have unexplained back pain. Your symptoms do not get better with treatment. You develop side effects from the medicine you are taking. Your urine becomes very dark or has a bad smell. Your lower abdomen becomes distended and you have trouble passing urine. Get help right away if: You have a fever or chills. You suddenly cannot urinate. You feel light-headed or very dizzy, or you faint. There are large amounts of blood or clots in your urine. Your urinary problems become hard to manage. You develop moderate to severe low back or flank pain. The flank is the side of your body between the ribs and the hip. These symptoms may be an emergency. Get help right away. Call 911. Do not wait to see if the symptoms will go away. Do not drive yourself to the hospital. Summary Benign prostatic hyperplasia (BPH) is an enlarged prostate that is caused by the normal aging process. It is not caused by cancer. An enlarged prostate can press on the urethra. This can make it hard to pass urine. This condition is more likely to develop in men older than 50 years. Get help right away if you suddenly cannot urinate. This information is not intended to replace advice given to you by your health care provider. Make sure you discuss any questions you have with your health care provider. Document Revised: 03/29/2022 Document Reviewed: 03/29/2022 MovieSet Patient Education 2022 [employer]. Follow Up Care 02/05/2023 10:31:34 With:PATSY TURNER, Balwinder Gastelum, URL Address: [facility] [employer] [address] [place] [address]- When: Unknown [facility] 11-08-2023 History of Present illness Narrative Subjective SUBJECTIVE: Patient ID: Leonardo Carmona is a 78 y.o. male who presents for a Medicare Annual Wellness exam. Presents for annual medicare wellness. Is accompanied by his . Drives. Does not use assistive gait devices. Drives. 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 Is monitored by Dr. Castaneda yearly for history of bladder cancer. Annual Exam Pertinent negatives include no chest pain, chills, coughing, fatigue, fever or headaches. The following portions of the patient's history were reviewed and updated as appropriate: allergies, current medications, past family history, past medical history, past social history, past surgical history and problem list. Past Surgical History: Procedure Laterality Date ABDOMINAL SURGERY BOWEL SURGERY FOR BLOCKAGE/12/13/2005/DETAILS UNCERTAIN CHOLECYSTECTOMY LAPAROSCOPY/0 COLONOSCOPY 11/2008 WORKUP FOR ANEMIA/DIAGNOSIS IRON DEFICIENCY ESOPHAGOGASTRODUODENOSCOPY WORKUP FOR ANEMIA FOOT SURGERY FIBROMA/12/19/2001 HAND SURGERY Left LEFT HAND BOXERS FRACTURE /12/19/1994 HAND SURGERY RIGHT HAND FRACTURE/STATUS POST ORIF WITH PINS KNEE CARTILAGE SURGERY Left TORN MENISCUS/03/30/1992 LIPOMA RESECTION REMOVED FROM ABDOMEN/1982 NEPHRECTOMY Right CANCER/03/19/2001 RIB FRACTURE SURGERY Left SIX RIB RESECTION FOR BIOPSY/08/05/2004 SMALL INTESTINE SURGERY TRIGGER FINGER RELEASE LEFT HAND/02/05/2007 VIDEO URODYNAMIC DIAGNOSIS BPH TREATED WITH RAPAFLO Past Medical History: Diagnosis Date Anemia IRON DEFICIENCY BPH (benign prostatic hyperplasia) OBSTRUCTION SYMPTOMS/IMPROVED WITH rapaflo Cancer (CMS-HCC) RENAL/STATUS POST NEPHRECTOMY Depression OCCURRED WITH DIAGNOSIS OF RENAL CANCER/ ON PROZAC Former tobacco use GI bleed due to NSAIDs UPPER GI BLEED Hard of hearing PATIENT HAS BUT DOES NOT WEAR HEARING AID History of dental surgery TOOTH IMPLANT History of kidney cancer s/p nephrectomy Osteoarthritis Seasonal allergies ON LORATADINE Seborrheic dermatitis FACIAL FAT FOLDS EYEBROW LINE WITH SCALY LESIONS Sleep apnea uses bipap Trigger finger STATUS POST SURGERY Vitamin D deficiency PATIENT ON SUPPLEMENTS/ETIOLOGY NEPHRECTOMY Wears glasses Immunization History Administered Date(s) Administered Pneumococcal Conjugate 13-Valent 01/20/2019 Tdap 07/23/2017 AWV FLOWSHEET : Lifestyle Assessment Do you smoke or use smokeless tobacco?: No If you smoke or use smokeless tobacco, are you ready to quit?: NA Are you exposed to secondhand smoke?: (!) Yes On average, how many drinks of alcohol do you consume in a week?: None Do you exercise for 30 or more minutes on average at least 3 days a week?: Always Do you have any tooth, denture, or oral problems?: (!) Yes Do you snore or has anyone told you that you snore?: (!) Yes Do you try to eat a balanced diet?: Yes Do you have difficulty performing any of these activities? (check all that apply): None Do you have difficulty performing any of these activities? (check all that apply): None Patient chews tobacco. is smoker. Patient is a current smoker, smoking cessation discussed today in office. He/She is not interested at this time Witnessed snoring, does not wish to pursue sleep study at this time. Discussed dental visits every 6 months and per dental provider recommendations. Fall Risk Depression Screening Little interest or pleasure in doing things: Not at all Feeling down, depressed, or hopeless: Not at all Safety Assessment Do you have throw rugs on the floor?: (!) Yes Do you feel safe at your home?: Yes Do you feel unsteady when walking?: No Are you having difficulty with driving?: No Do you have trouble seeing?: No What assistive device do you use? (check all that apply): None Throw rugs increase risk for slips, trips, falls Hearing Assessment Do you strain or struggle to hear/understand conversations?: (!) Yes Do you have trouble hearing the television or radio when others do not?: (!) Yes Does your family ever voice concerns about your hearing?: (!) Yes Do you wear hearing aid/s?: No Discussed audiology testing. Referral if hearing issues continue. Personal Health During the past 4 weeks, how would you rate your overall health?: Excellent Do you understand how to take all of your medications?: Yes How confident are you that you can control and manage most of your health problems?: Very confident In the past 12 months, how many times have you been hospitalized?: None End of Life Planning Do you have a living will?: Yes Do you have a durable power of litigation attorney?: Yes Cognitive Screening Do you have trouble remembering or recalling facts or events?: (!) Yes Do family members or caregivers report that you have difficulty remembering things?: No Clock Drawing Test: Normal Normal sentence and clock structure REVIEW OF SYSTEMS: Review of Systems Constitutional: Negative for chills, fatigue and fever. HENT: Negative for hearing loss and trouble swallowing. Eyes: Negative for pain and visual disturbance. Respiratory: Negative for cough, chest tightness and shortness of breath. Cardiovascular: Negative for chest pain, palpitations and leg swelling. Gastrointestinal: Negative for blood in stool. Endocrine: Negative for polydipsia, polyphagia and polyuria. Genitourinary: Negative for difficulty urinating, dysuria, flank pain, hematuria, scrotal swelling and testicular pain. Musculoskeletal: Negative. Skin: Negative. Allergic/Immunologic: Negative. Neurological: Negative for seizures, syncope and headaches. Hematological: Does not bruise/bleed easily. Psychiatric/Behavioral: Negative. Objective PHYSICAL EXAMINATION: Vitals: 11/08/23 1123 BP: 130/78 BP Site: Left Arm BP Postition: Sitting Pulse: 66 Temp: 36.8 C (98.2 F) TempSrc: Tympanic SpO2: 98% Weight: 92.5 kg (203 lb 14.4 oz) Height: 188 cm (6' 2 ) Patient noted to have elevated BMI and the following intervention(s) were applied: encouragement to exercise. Relevant Labs: Lab Results Component Value Date HGBA1C 6.1 11/01/2022 HGBA1C 5.7 04/14/2020 Lab Results Component Value Date MICROALBUR 5.0 (H) 11/01/2022 URINECREAT 87.91 11/01/2022 ALBCREATRA 56.9 (H) 11/01/2022 Lab Results Component Value Date TSH 2.43 11/01/2022 TSH 1.57 08/22/2021 Lab Results Component Value Date VITD25 53.0 04/22/2019 Lab Results Component Value Date WBC 8.8 11/01/2022 RBCCOUNT 4.56 11/01/2022 HGB 14.2 11/01/2022 HCT 41.6 11/01/2022 MCV 91 11/01/2022 MCH 31.1 11/01/2022 MCHC 34.1 11/01/2022 RDW 13.1 11/01/2022 PLT 279 11/01/2022 MPV 8.0 11/01/2022 No results found for: PSA Lab Results Component Value Date SODIUM 137 11/01/2022 K 4.2 11/01/2022 CL 103 11/01/2022 CO2 28 11/01/2022 ANIONGAP 6 11/01/2022 BUN 21 11/01/2022 GLU 121 (H) 11/01/2022 CALCIUM 9.3 11/01/2022 TOTALPROTEI 6.9 11/01/2022 ALBUMIN 4.3 11/01/2022 ALKPHOS 86 11/01/2022 AST 15 11/01/2022 ALT 17 11/01/2022 GFR 54 (L) 08/22/2021 GFR >60 08/22/2021 Imaging: No results found. Physical Exam Vitals and nursing note reviewed. Constitutional: General: He is not in acute distress. Appearance: He is well-developed. HENT: Head: Normocephalic and atraumatic. Right Ear: Tympanic membrane and external ear normal. Left Ear: Tympanic membrane and external ear normal. Nose: Nose normal. Mouth/Throat: Mouth: Mucous membranes are moist. Pharynx: No oropharyngeal exudate. Eyes: General: No scleral icterus. Right eye: No discharge. Left eye: No discharge. Conjunctiva/sclera: Conjunctivae normal. Pupils: Pupils are equal, round, and reactive to light. Neck: Vascular: No JVD. Cardiovascular: Rate and Rhythm: Normal rate and regular rhythm. Heart sounds: Normal heart sounds. No murmur heard. No friction rub. No gallop. Pulmonary: Effort: Pulmonary effort is normal. No respiratory distress. Breath sounds: Normal breath sounds. Chest: Chest wall: No tenderness. Abdominal: General: Bowel sounds are normal. There is no distension. Palpations: Abdomen is soft. There is no mass. Tenderness: There is no abdominal tenderness. There is no guarding or rebound. Hernia: No hernia is present. Musculoskeletal: General: No tenderness. Normal range of motion. Cervical back: Normal range of motion and neck supple. Lymphadenopathy: Cervical: No cervical adenopathy. Skin: General: Skin is warm and dry. Capillary Refill: Capillary refill takes less than 2 seconds. Findings: No rash. Neurological: Mental Status: He is alert and oriented to person, place, and time. Deep Tendon Reflexes: Reflexes are normal and symmetric. Psychiatric: Mood and Affect: Mood normal. Behavior: Behavior normal. Thought Content: Thought content normal. Judgment: Judgment normal. Assessment/Plan ASSESSMENT/PLAN Leonardo was seen today for annual exam. Diagnoses and all orders for this visit: Medicare annual wellness visit, subsequent DM type 2 with diabetic mixed hyperlipidemia ([facility]) - POCT Hemoglobin A1c - lisinopriL (PRINIVIL,ZESTRIL) 5 mg tablet; Take 1 tablet (5 mg total) by mouth in the morning. 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 Reorder routine medication A1c 5.9% Depression: Not at risk (11/08/2023) PHQ-2 PHQ-2 Score: 0 Body mass index is 26.18 kg/m . Patient noted to have elevated BMI and the following intervention(s) were applied: Discussed current weight today. Consider healthy food choices, portion control. Avoid sugary beverages and high concentrated sweets. Routine exercise regimen encouraged. Total time spent was 30 minutes: Preparing to see the patient (e.g., review of tests) Obtaining and/or reviewing separately obtained history Performing a medically appropriate examination and/or evaluation Counseling and educating the patient/family/caregiver Ordering medications, tests, or procedures Return in about 5 months (around 04/07/2024). There are no Patient Instructions on file for this visit. ELIGIO Yoo 11/08/23 1225 documented in this encounter [facility] [employer] 02-05-2023 Hospital Discharge instructions Patient Education 02/05/2023 10:13:39 Benign Prostatic Hyperplasia Benign Prostatic Hyperplasia Benign prostatic hyperplasia (BPH) is an enlarged prostate gland that is caused by the normal aging process. The prostate may get bigger as a man gets older. The condition is not caused by cancer. The prostate is a walnut-sized gland that is involved in the production of semen. It is located in front of the rectum and below the bladder. The bladder stores urine. The urethra carries stored urine out of the body. An enlarged prostate can press on the urethra. This can make it harder to pass urine. The buildup of urine in the bladder can cause infection. Back pressure and infection may progress to bladder damage and kidney (renal) failure. What are the causes? This condition is part of the normal aging process. However, not all men develop problems from this condition. If the prostate enlarges away from the urethra, urine flow will not be blocked. If it enlarges toward the urethra and compresses it, there will be problems passing urine. What increases the risk? This condition is more likely to develop in men older than 50 years. What are the signs or symptoms? Symptoms of this condition include: Getting up often during the night to urinate. Needing to urinate frequently during the day. Difficulty starting urine flow. Decrease in size and strength of your urine stream. Leaking (dribbling) after urinating. Inability to pass urine. This needs immediate treatment. Inability to completely empty your bladder. Pain when you pass urine. This is more common if there is also an infection. Urinary tract infection (UTI). How is this diagnosed? This condition is diagnosed based on your medical history, a physical exam, and your symptoms. Tests will also be done, such as: A post-void bladder scan. This measures any amount of urine that may remain in your bladder after you finish urinating. A digital rectal exam. In a rectal exam, your health care provider checks your prostate by putting a lubricated, gloved finger into your rectum to feel the back of your prostate gland. This exam detects the size of your gland and any abnormal lumps or growths. An exam of your urine (urinalysis). A prostate specific antigen (PSA) screening. This is a blood test used to screen for prostate cancer. An ultrasound. This test uses sound waves to electronically produce a picture of your prostate gland. Your health care provider may refer you to a specialist in kidney and prostate diseases (urologist). How is this treated? Once symptoms begin, your health care provider will monitor your condition (active surveillance or watchful waiting). Treatment for this condition will depend on the severity of your condition. Treatment may include: Observation and yearly exams. This may be the only treatment needed if your condition and symptoms are mild. Medicines to relieve your symptoms, including: ?Medicines to shrink the prostate. ?Medicines to relax the muscle of the prostate. Surgery in severe cases. Surgery may include: ?Prostatectomy. In this procedure, the prostate tissue is removed completely through an open incision or with a laparoscope or robotics. ?Transurethral resection of the prostate (TURP). In this procedure, a tool is inserted through the opening at the tip of the penis (urethra). It is used to cut away tissue of the inner core of the prostate. The pieces are removed through the same opening of the penis. This removes the blockage. ?Transurethral incision (TUIP). In this procedure, small cuts are made in the prostate. This lessens the prostate's pressure on the urethra. ?Transurethral microwave thermotherapy (TUMT). This procedure uses microwaves to create heat. The heat destroys and removes a small amount of prostate tissue. ?Transurethral needle ablation (TUNA). This procedure uses radio frequencies to destroy and remove a small amount of prostate tissue. ?Interstitial laser coagulation (ILC). This procedure uses a laser to destroy and remove a small amount of prostate tissue. ?Transurethral electrovaporization (TUVP). This procedure uses electrodes to destroy and remove a small amount of prostate tissue. ?Prostatic urethral lift. This procedure inserts an implant to push the lobes of the prostate away from the urethra. Follow these instructions at home: Take pnlr-ekm-hacqnqd and prescription medicines only as told by your health care provider. Monitor your symptoms for any changes. Contact your health care provider with any changes. Avoid drinking large amounts of liquid before going to bed or out in public. Avoid or reduce how much caffeine or alcohol you drink. Give yourself time when you urinate. Keep all follow-up visits. This is important. Contact a health care provider if: You have unexplained back pain. Your symptoms do not get better with treatment. You develop side effects from the medicine you are taking. Your urine becomes very dark or has a bad smell. Your lower abdomen becomes distended and you have trouble passing urine. Get help right away if: You have a fever or chills. You suddenly cannot urinate. You feel light-headed or very dizzy, or you faint. There are large amounts of blood or clots in your urine. Your urinary problems become hard to manage. You develop moderate to severe low back or flank pain. The flank is the side of your body between the ribs and the hip. These symptoms may be an emergency. Get help right away. Call 911. Do not wait to see if the symptoms will go away. Do not drive yourself to the hospital. Summary Benign prostatic hyperplasia (BPH) is an enlarged prostate that is caused by the normal aging process. It is not caused by cancer. An enlarged prostate can press on the urethra. This can make it hard to pass urine. This condition is more likely to develop in men older than 50 years. Get help right away if you suddenly cannot urinate. This information is not intended to replace advice given to you by your health care provider. Make sure you discuss any questions you have with your health care provider. Document Revised: 03/29/2022 Document Reviewed: 03/29/2022 MovieSet Patient Education 2022 [employer]. Follow Up Care 01/26/2022 10:34:30 With:PATSY TURNER, Balwinder Gastelum, URL Address: When:Within 1 Year(s) Comments:w/MARISELA [facility] 01-26-2022 Hospital Discharge instructions Patient Education 01/26/2022 10:17:38 Acute Urinary Retention, Male Acute Urinary Retention, Male Acute urinary retention is a condition in which a person is unable to pass urine. This can last for a short time or for a long time. If left untreated, it can result in kidney damage or other serious complications. What are the causes? This condition may be caused by: Obstruction or narrowing of the tube that drains the bladder (urethra). This may be caused by surgery or problems with nearby organs, such as the prostate gland, which can press or squeeze the urethra. Problems with the nerves in the bladder. These can be caused by diseases, such as multiple sclerosis, or by spinal cord injuries. Certain medicines. Tumors in the area of the pelvis, bladder, or urethra. Diabetes. Degenerative cognitive conditions such as delirium or dementia. Bladder or urinary tract infection. Constipation. Blood in the urine (hematuria). Injury to the bladder or urethra. Psychological (psychogenic) conditions. Someone may hold his urine due to trauma or because he does not want to use the bathroom. What increases the risk? This condition is more likely to develop in older men. As men age, their prostate may become larger and may start pressing or squeezing on the bladder or the urethra. What are the signs or symptoms? Symptoms of this condition include: Trouble urinating. Pain in the lower abdomen. Symptoms usually come on slowly over a long period of time. How is this diagnosed? This condition is diagnosed based on a physical exam and a medical history. You may also have other tests, including: An ultrasound of the bladder or kidneys or both. Blood tests. A urine analysis. Additional tests may be needed such as an MRI, kidney, or bladder function tests. How is this treated? Treatment for this condition may include: Medicines. Placing a thin, sterile tube (catheter) into the bladder to drain urine out of the body. This is called an indwelling urinary catheter. After being inserted, the catheter is held in place with a small balloon that is filled with sterile water. Urine drains from the catheter into a collection bag outside of the body. Behavioral therapy. Treatment for any underlying conditions. If needed, you may be treated in the hospital for kidney function problems or to manage other complications. Follow these instructions at home: Take ybwg-qxa-tzjqhcf and prescription medicines only as told by your health care provider. Avoid certain medicines, such as decongestants, antihistamines, and some prescription medicines. Do not take any medicine unless your health care provider has approved. If you were given an indwelling urinary catheter, take care of it as told by your health care provider. Drink enough fluid to keep your urine clear or pale yellow. If you were prescribed an antibiotic, take it as told by your health care provider. Do not stop taking the antibiotic even if you start to feel better. Do not use any products that contain nicotine or tobacco, such as cigarettes and e-cigarettes. If you need help quitting, ask your health care provider. Monitor any changes in your symptoms. Tell your health care provider about any changes. If instructed, monitor your blood pressure at home. Report changes as told by your health care provider. Keep all follow-up visits as told by your health care provider. This is important. Contact a health care provider if: You have uncomfortable bladder contractions that you cannot control (spasms) or you leak urine with the spasms. Get help right away if: You have chills or fever. You have blood in your urine. You have a catheter and: ?Your catheter stops draining urine. ?Your catheter falls out. Summary Acute urinary retention is a condition in which a person is unable to pass urine. If left untreated, it can result in kidney damage or other serious complications. The cause of this condition may include an enlarged prostate. As men age, their prostate gland may become larger and may start pressing or squeezing on the bladder or the urethra. Treatment for this condition may include medicines and placement of an indwelling urinary catheter. Monitor any changes in your symptoms. Tell your health care provider about any changes. This information is not intended to replace advice given to you by your health care provider. Make sure you discuss any questions you have with your health care provider. Document Released: 12/17/2001 Document Revised: 08/23/2018 Document Reviewed: 10/12/2017 MovieSet Patient Education 2020 [employer]. 01/26/2022 10:17:36 Benign Prostatic Hyperplasia Benign Prostatic Hyperplasia Benign prostatic hyperplasia (BPH) is an enlarged prostate gland that is caused by the normal aging process and not by cancer. The prostate is a walnut-sized gland that is involved in the production of semen. It is located in front of the rectum and below the bladder. The bladder stores urine and the urethra is the tube that carries the urine out of the body. The prostate may get bigger as a man gets older. An enlarged prostate can press on the urethra. This can make it harder to pass urine. The build-up of urine in the bladder can cause infection. Back pressure and infection may progress to bladder damage and kidney (renal) failure. What are the causes? This condition is part of a normal aging process. However, not all men develop problems from this condition. If the prostate enlarges away from the urethra, urine flow will not be blocked. If it enlarges toward the urethra and compresses it, there will be problems passing urine. What increases the risk? This condition is more likely to develop in men over the age of 50 years. What are the signs or symptoms? Symptoms of this condition include: Getting up often during the night to urinate. Needing to urinate frequently during the day. Difficulty starting urine flow. Decrease in size and strength of your urine stream. Leaking (dribbling) after urinating. Inability to pass urine. This needs immediate treatment. Inability to completely empty your bladder. Pain when you pass urine. This is more common if there is also an infection. Urinary tract infection (UTI). How is this diagnosed? This condition is diagnosed based on your medical history, a physical exam, and your symptoms. Tests will also be done, such as: A post-void bladder scan. This measures any amount of urine that may remain in your bladder after you finish urinating. A digital rectal exam. In a rectal exam, your health care provider checks your prostate by putting a lubricated, gloved finger into your rectum to feel the back of your prostate gland. This exam detects the size of your gland and any abnormal lumps or growths. An exam of your urine (urinalysis). A prostate specific antigen (PSA) screening. This is a blood test used to screen for prostate cancer. An ultrasound. This test uses sound waves to electronically produce a picture of your prostate gland. Your health care provider may refer you to a specialist in kidney and prostate diseases (urologist). How is this treated? Once symptoms begin, your health care provider will monitor your condition (active surveillance or watchful waiting). Treatment for this condition will depend on the severity of your condition. Treatment may include: Observation and yearly exams. This may be the only treatment needed if your condition and symptoms are mild. Medicines to relieve your symptoms, including: ?Medicines to shrink the prostate. ?Medicines to relax the muscle of the prostate. Surgery in severe cases. Surgery may include: ?Prostatectomy. In this procedure, the prostate tissue is removed completely through an open incision or with a laparoscope or robotics. ?Transurethral resection of the prostate (TURP). In this procedure, a tool is inserted through the opening at the tip of the penis (urethra). It is used to cut away tissue of the inner core of the prostate. The pieces are removed through the same opening of the penis. This removes the blockage. ?Transurethral incision (TUIP). In this procedure, small cuts are made in the prostate. This lessens the prostate's pressure on the urethra. ?Transurethral microwave thermotherapy (TUMT). This procedure uses microwaves to create heat. The heat destroys and removes a small amount of prostate tissue. ?Transurethral needle ablation (TUNA). This procedure uses radio frequencies to destroy and remove a small amount of prostate tissue. ?Interstitial laser coagulation (ILC). This procedure uses a laser to destroy and remove a small amount of prostate tissue. ?Transurethral electrovaporization (TUVP). This procedure uses electrodes to destroy and remove a small amount of prostate tissue. ?Prostatic urethral lift. This procedure inserts an implant to push the lobes of the prostate away from the urethra. Follow these instructions at home: Take coge-nvt-burzlpc and prescription medicines only as told by your health care provider. Monitor your symptoms for any changes. Contact your health care provider with any changes. Avoid drinking large amounts of liquid before going to bed or out in public. Avoid or reduce how much caffeine or alcohol you drink. Give yourself time when you urinate. Keep all follow-up visits as told by your health care provider. This is important. Contact a health care provider if: You have unexplained back pain. Your symptoms do not get better with treatment. You develop side effects from the medicine you are taking. Your urine becomes very dark or has a bad smell. Your lower abdomen becomes distended and you have trouble passing your urine. Get help right away if: You have a fever or chills. You suddenly cannot urinate. You feel lightheaded, or very dizzy, or you faint. There are large amounts of blood or clots in the urine. Your urinary problems become hard to manage. You develop moderate to severe low back or flank pain. The flank is the side of your body between the ribs and the hip. These symptoms may represent a serious problem that is an emergency. Do not wait to see if the symptoms will go away. Get medical help right away. Call your local emergency services (911 in the [place] Do not drive yourself to the hospital. Summary Benign prostatic hyperplasia (BPH) is an enlarged prostate that is caused by the normal aging process and not by cancer. An enlarged prostate can press on the urethra. This can make it hard to pass urine. This condition is part of a normal aging process and is more likely to develop in men over the age of 50 years. Get help right away if you suddenly cannot urinate. This information is not intended to replace advice given to you by your health care provider. Make sure you discuss any questions you have with your health care provider. Document Released: 09/10/2006 Document Revised: 08/05/2019 Document Reviewed: 10/15/2017 MovieSet Patient Education 2020 [employer]. Follow Up Care 01/03/2021 10:31:48 With:Felicity CASTANEDA MD, NEERAJ Address: [address] [place] [address] [place] [address]- When:1 year [facility] Evaluation + Plan note Future Appointments Appointment Date:02/05/2023 09:30:00 AM Scheduled Provider:Felicity CASTANEDA MD Location:[facility] Appointment Type:URO Office Visit Diagnostic Tests PendingPSA Total 01/26/22 [facility] Evaluation + Plan note Future Appointments Appointment Date:02/11/2024 09:45:00 AM Scheduled Provider:Balwinder GARNER MD Location:[facility] Appointment Type:URO Office Visit [facility] Evaluation + Plan note Future Appointments Appointment Date:02/09/2025 09:45:00 AM Scheduled Provider:Balwinder GARNER MD Location:[facility] Appointment Type:URO Office Visit Diagnostic Tests PendingPSA Total 02/11/24PSA Total 11/22/24 [facility] Evaluation note Diagnosis 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) [facility] Diagnosis Medicare annual wellness visit, subsequent- Primary 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 * Diabetic Meal Planning (German) [facility] No data available for this section [facility] Daphnie Summary Purpose Family History No Family History Records FoundNo Family History Records Found No data available for this section No Family History Records FoundNo Family History Records FoundNo Family History Records Found Advance Directives No Advanced Directives Records FoundNo Advanced Directives Records FoundNo Advanced Directives Records FoundNo Advanced Directives Records FoundNo Advanced Directives Records Found Additional Source Comments (unrecognized sect ion and content) No Status Records FoundNo Status Records FoundNo Status Records FoundNo Status Records FoundNo Status Records Found INFORMATION SOURCE (unrecogn ized section and content) DATE CREATED AUTHOR 04/19/2021 [facility] DATE CREATED AUTHOR AUTHOR'S ORGANIZ ATION 02/02/[address] 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 This clinical summary was aggregated from multiple sources. Caution should be exercised in using it in the provision of clinical care. This summary normalizes information from multiple sources, and as a consequence, information in this document may materially change the coding, format and clinical context of patient data. In addition, data may be omitted in some cases. CLINICAL DECISIONS SHOULD BE BASED ON THE PRIMARY CLINICAL RECORDS. [email or web address] [facility]. provides no warranty or guarantee of the accuracy or completeness of information in this document.
[2024-07-19 11:50] VITALS: BP 147/85; PULSE 49; TEMP 36.6; O2SAT 98; BMI 26.4
--- NOTE | 2024-07-19 12:03 | CT_ITS ---
The [address] [address] Patient Name: LEONARDO CARMONA MRN: [id number] date: 1945 Sex: M Assigned Patient Location: ER Current Patient Location: ER Accession/Order Number: [id number] Exam Date: 07/19/2024 12:51 Report Date: 07/19/2024 13:26 At the request of: CHRYSTAL CORDOBA Procedure: CT head/brain wo con EXAM: CT head/brain wo con HISTORY: Dizziness, pain to right ear COMPARISON: CT head 04/13/2021. TECHNIQUE: Axial noncontrast CT imaging of the head was performed with coronal and sagittal reformats. This CT exam was performed using one or more of the following dose reduction techniques: Automated exposure control, adjustment of the MA and/or kV according to patient size, or use of iterative reconstruction technique. FINDINGS: Calvarium/skull base: No evidence of acute fracture or destructive lesion. Mastoid air cells are well aerated. Paranasal sinuses: No air fluid levels. Brain: No acute intracranial hemorrhage. No acute large vascular territory infarct. Stable parenchymal volume loss. No mass lesion or mass effect. No hydrocephalus. CT/CT head/brain wo con IMPRESSION: No acute intracranial process. Electronically authenticated by: KAVITA MARQUEZ Date: 07/19/2024 13:26
--- NOTE | 2024-07-19 12:03 | ECG_ITS ---
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
--- NOTE | 2024-07-19 12:04 | ED.GENADUL1 ---
HPI HPI - General Adult General Chief complaint: Dizziness Stated complaint: DIZZINESS/EARACHE Time Seen by Provider: 07/19/24 11:45 Source: patient Mode of arrival: Wheelchair History of Present Illness HPI narrative: 78-year-old male presents to the emergency department for dizziness and right ear pain. It started yesterday and was worse today. He has pain below and anterior to the right ear, no trauma. He has had no drainage and no symptoms in his throat or left ear. He has also been dizzy. No complaints of a headache. No palpitations chest pain or shortness of breath or localized weakness. No fever or vomiting. Related Data Previous Rx's ?Medication ?Instructions ?Recorded acetaminophen 300 mg-codeine 30 mg 1 tab PO Q6H PRN pain 5 days #20 07/19/24 tablet tabs amoxicillin 500 mg capsule 500 mg PO TID 10 days #30 caps 07/19/24 Allergies Allergy/AdvReac Type Severity Reaction Status Date / Time NSAIDS (Non-Steroidal Allergy Severe Unknown Verified 07/19/24 11:55 Anti-Inflamma promethazine (From Phenergan) Allergy Severe Rash Verified 07/19/24 11:54 Opioid HPI Opioid Management Most Recent Opioid Data: No Data to Display Review of Systems ROS Narrative A ten point review of systems is negative except as noted above. PFSH PFSH Social History Little interest or pleasure in doing things: not at all Feeling down, depressed, or hopeless: not at all Exam Narrative Exam Narrative: Nurses note and vital signs reviewed and patient is not hypoxic. General: The patient appears well and in no apparent distress. Patient is resting comfortably on cart. Skin: Warm, dry, no pallor noted. There is no rash noted. Head: Normocephalic, atraumatic Eye: Normal conjunctiva, no drainage Ears, Nose, Mouth, and Throat: oral mucosa is moist. Nares patent. Left TM obstructed by cerumen. Right is normal with a normal external canal as well. Cardiovascular: Regular Rate and Rhythm Respiratory: Patient is in no distress, no accessory muscle use, lungs are clear to auscultation, no wheezing, rales or rhonchi Back: non-tender GI: Soft and nontender Musculoskeletal: The patient has no evidence of calf tenderness, no pitting edema, symmetrical pulses noted bilaterally Neurological: A&O, normal speech Psychiatric: Cooperative Constitutional Vital Signs, click to edit/add: Last Vital Signs Temp 97.8 F 07/19/24 11:50 Pulse 49 L 07/19/24 11:50 Resp 18 07/19/24 11:50 BP 147/85 H 07/19/24 11:50 Pulse Ox 98 07/19/24 11:50 O2 Del Method Room Air 07/19/24 11:50 Course Vital Signs Vital signs: Vital Signs Temperature 97.8 F 07/19/24 11:50 Pulse Rate 49 L 07/19/24 11:50 Respiratory Rate 18 07/19/24 11:50 Blood Pressure 147/85 H 07/19/24 11:50 Pulse Oximetry 98 07/19/24 11:50 Oxygen Delivery Method Room Air 07/19/24 11:50 Temperature 97.8 F 07/19/24 11:50 Pulse Rate 49 L 07/19/24 11:50 Respiratory Rate 18 07/19/24 11:50 Blood Pressure 147/85 H 07/19/24 11:50 Pulse Oximetry 98 07/19/24 11:50 Oxygen Delivery Method Room Air 07/19/24 11:50 Medical Decision Making MDM Narrative Medical decision making narrative: His workup in Differential Diagnosis Differential Diagnosis: Otitis media, otitis externa, mass Lab Data Lab results reviewed: Yes I reviewed the patient's lab results Labs: Lab Results 07/19/24 Range/Units 12:21 WBC 7.8 (4.0-11.0) 10^3/uL RBC 4.47 L (4.70-6.10) 10^6/uL Hgb 13.6 L (14.0-18.0) g/dL Hct 39.9 L (42.0-54.0) % MCV 89.3 (80.0-94.0) fL MCH 30.4 (25.9-34.0) pg MCHC 34.1 (29.9-35.2) g/dL RDW 12.5 (11.0-15.0) % Plt Count 271 (150-450) 10^3/uL MPV 8.9 L (9.5-13.5) fL Neut % (Auto) 75.7 H (43.0-75.0) % Lymph % (Auto) 17.9 L (20.5-60.0) % [place] % (Auto) 4.8 (1.7-12.0) % Eos % (Auto) 1.0 (0.9-7.0) % Baso % (Auto) 0.3 (0.2-2.0) % Neut # (Auto) 5.9 (1.4-6.5) 10^3/uL Lymph # (Auto) 1.4 (1.2-3.8) 10^3/uL [place] # (Auto) 0.4 (0.3-0.8) 10^3/uL Eos # (Auto) 0.1 (0.0-0.7) 10^3/uL Baso # (Auto) 0.0 (0.0-0.1) 10^3/uL Abs Immat Gran (auto) 0.02 (0.00-0.03) 10^3/uL Imm/Tot Granulo (auto) 0.3 (0.0-0.5) % Sodium 140 (136-145) mmol/L Potassium 4.2 (3.5-5.1) mmol/L Chloride 106 (98-107) mmol/L Carbon Dioxide 28.5 (21.0-32.0) mmol/L Anion Gap 9.7 BUN 17.0 (7.0-18.0) mg/dL Creatinine 1.43 H (0.70-1.30) mg/dL Est GFR ( Amer) 58 L (>=60 mL/min/1.73m^2) Est GFR (Non-Af Amer) 48 L (>=60 mL/min/1.73m^2) BUN/Creatinine Ratio 11.9 Glucose 170 H (74-106) mg/dL Calcium 9.2 (8.5-10.1) mg/dL Imaging Data CT scan - head: Radiologist's impression: ITS Impressions Head CT 07/19/24 12:03 IMPRESSION: No acute intracranial process. Electronically authenticated by: KAVITA MARQUEZ Date: 07/19/2024 13:26 ECG Data Attestation: I personally reviewed and interpreted this ECG as follows: (EKG on my interpretation shows sinus rhythm with a rate of 52 and no acute change.) Discharge Plan Discharge Chief Complaint: Dizziness Clinical Impression: Acute otalgia Patient Disposition: Home, Self-Care Time of Disposition Decision: 13:33 Condition: Good Mode of Transportation: Private Vehicle Prescriptions / Home Meds: New amoxicillin 500 mg capsule 500 mg PO TID 10 Days Qty: 30 0RF acetaminophen-codeine 300-30 mg tablet 1 tab PO Q6H PRN (Reason: pain) 5 Days Qty: 20 0RF Print Language: Welsh Instructions: Earache (ED) Referrals: Lizzy Pringle MD [Physician] - 1 week KIKO SHEIKH [Primary Care Provider] - 1 week
[2024-07-19 12:30] VITALS: PULSE 52
[2024-07-19 12:31] LABS: Basophils Percent Auto 0.3 % (0.2-2.0); Eosinophils Absolute Auto 0.1 10^3/uL (0.0-0.7); Hematocrit 39.9 % (42.0-54.0); Hemoglobin 13.6 g/dL (14.0-18.0); Immature Granulocytes Abs Auto 0.02 10^3/uL (0.00-0.03); Immature Granulocytes Pct Auto 0.3 % (0.0-0.5); Lymphocytes Absolute Auto 1.4 10^3/uL (1.2-3.8); Lymphocytes Percent Auto 17.9 % (20.5-60.0); Mean Corpuscular HGB Conc 34.1 g/dL (29.9-35.2); Mean Corpuscular Hemoglobin 30.4 pg (25.9-34.0); Mean Corpuscular Volume 89.3 fL (80.0-94.0); Mean Platelet Volume 8.9 fL (9.5-13.5); Monocytes Absolute Auto 0.4 10^3/uL (0.3-0.8); Monocytes Percent Auto 4.8 % (1.7-12.0); Neutrophils Absolute Auto 5.9 10^3/uL (1.4-6.5); Neutrophils Percent Auto 75.7 % (43.0-75.0); Platelet Count 271 10^3/uL (150-450); Red Blood Count 4.47 10^6/uL (4.70-6.10); Red Cell Distribution Width 12.5 % (11.0-15.0); White Blood Count 7.8 10^3/uL (4.0-11.0)
[2024-07-19 12:43] LABS: Anion Gap 9.7; BUN Creatinine Ratio 11.9; Calcium 9.2 mg/dL (8.5-10.1); Carbon Dioxide 28.5 mmol/L (21.0-32.0); Chloride 106 mmol/L (98-107); Estimated GFR (African America 58 (>=60 mL/min/1.73m^2); Estimated GFR (Non-African Ame 48 (>=60 mL/min/1.73m^2); Glucose 170 mg/dL (74-106); Potassium 4.2 mmol/L (3.5-5.1); Sodium 140 mmol/L (136-145)
== END 2024-07-19 13:54 | disposition home or self-care (01) ==
PROVIDERS: Emergency Provider Emergency Medicine; PCP Nurse Practitioner
DX: H92.01 Otalgia, right ear (principal)
CPT/HCPCS: 36415; 70450; 80048; 85025; 93005; 99285